=== PATIENT | male | born 1945 | race Caucasian/White ===

== ENCOUNTER 2019-10-09 12:15 | Outpatient (CLI) | payer OTHER, SELFPAY ==
[2019-10-09 12:42] LABS: Basophils Percent Auto 0.6 % (0.2-1.2); Eosinophils Absolute Auto 0.2 K/mm3 (0-0.3); Eosinophils Percent Auto 3.1 % (0-4.4); Hematocrit 27.7 % (42.0-52.0); Hemoglobin 8.9 g/dL (14.0-18.0); Immature Granulocyte Absolute 0.01 K/mm3 (0.00-0.031); Immature Granulocyte Percent A 0.1 % (0-0.5); Lymphocytes Absolute Auto 1.72 K/mm3 (0.9-3.2); Lymphocytes Percent Auto 25.6 % (18.3-44.2); Mean Corpuscular HGB Conc 32.1 g/dl (32-36); Mean Corpuscular Volume 96.5 fl (80-100); Mean Platelet Volume 9.8 fl (7.4-10.4); Monocytes Absolute Auto 0.6 K/mm3 (0.1-0.6); Monocytes Percent Auto 8.8 % (2.6-8.5); Neutrophils Absolute Auto 4.2 K/mm3 (1.3-6.7); Neutrophils Percent Auto 61.8 % (45.5-73.1); Platelet Count Result 220 k/mm3 (150-375); Red Blood Count 2.87 M/mm3 (4.6-6.20); Red Cell Distribution Width 13.5 % (11.5-14.5); White Blood Count 6.7 K/mm3 (4.5-10.0)
[2019-10-09 12:50] LABS: Albumin Level 4.2 g/dL (3.5-5.1); Anion Gap 13.5 mmol/L (7-16); Blood Urea Nitrogen 39 mg/dL (9-20); Calcium 9.3 mg/dL (8.4-10.2); Carbon Dioxide 29 mmol/L (22-30); Chloride 102 mmol/L (98-107); Estimated Glomerular Filt Rate 13; Glucose 147 mg/dL (75-110); Phosphorus 3.1 mg/dL (2.5-4.5); Potassium 3.5 mmol/L (3.4-5.0); Sodium 141 mmol/L (137-145)
[2019-10-09 13:23] LABS: Iron 61 ug/dL (49-181)
[2019-10-09 13:32] LABS: Percent Iron Saturation 18 % (20-50)
== END 2019-10-09 12:16 | disposition home or self-care (01) ==
PROVIDERS: PCP Internal Medicine
DX: N17.9 Acute kidney failure, unspecified (principal); N18.9 Chronic kidney disease, unspecified; D63.1 Anemia in chronic kidney disease
CPT/HCPCS: 36415; 80069; 82728; 83540; 83550; 85025

== ENCOUNTER 2019-10-10 11:51 | Outpatient (CLI) | payer OTHER, SELFPAY ==
[2019-10-10 14:52] LABS: Creatinine Urine 66.2 mg/dL
[2019-10-10 14:57] LABS: MALB Creatinine Ratio 137.8 mg/g (0-30); Microalbumin Urine Random 91.2 mg/L (0-16.7)
== END 2019-10-10 11:52 | disposition home or self-care (01) ==
PROVIDERS: PCP Internal Medicine
DX: N17.9 Acute kidney failure, unspecified (principal)
CPT/HCPCS: 82043

== ENCOUNTER 2019-10-19 10:02 | Observation (INO) | payer OTHER, SELFPAY ==
[2019-10-19] VITALS (7 sets, daily range): BP systolic 142–188; BP diastolic 72–83; PULSE 78–98; RESP 12–20; TEMP 36.7–37.2; O2SAT 20–99; BMI 31.1
--- NOTE | ~2019-10-19 | XR_ITS ---
EXAMINATION: XR chest 1V DATE: 10/19/2019 11:06 INDICATION: Weakness post fall TECHNIQUE: frontal view of the chest was obtained. COMPARISON: Chest radiograph dated 02/15/2018 FINDINGS: Small lung volumes with mild left basilar atelectasis. No pulmonary edema, pleural effusion or pneumo thorax. The cardiomediastinal silhouette is normal. Severe midthoracic spondylosis. IMPRESSION: 1. Small lung volumes with mild left basilar atelectasis. Reviewed, dictated and finalized at location A.
--- NOTE | ~2019-10-19 | CT_ITS ---
EXAMINATION: CT brain wo con DATE: 10/19/2019 10:59 INDICATION: Dizziness. Weakness. TECHNIQUE: Computed tomography (CT) of the head was performed without intravenous contrast. The mA wa s adjusted according to patient size. Iterative reconstruction technique was employed. The dose-lengt h product was 605.33 mGy-cm. COMPARISON: Head CT 02/15/2018, brain MRI 02/16/2018 FINDINGS: There are scattered areas of low attenuation in the cerebral white matter. There is no intr acranial hemorrhage, acute infarction, or abnormal intracranial mass lesion. The ventricles are khris l in size. The orbits are normal. There is mild mucosal thickening in the paranasal sinuses. The mast oid air cells are normal. IMPRESSION: 1. Worsened moderate nonspecific cerebral white matter disease, which likely represents chronic small vessel ischemic disease. Reviewed, dictated and finalized at location B. IMPRESSION: 1. Worsened moderate nonspecific cerebral white matter disease, which likely re presents chronic small vessel ischemic disease.
--- NOTE | ~2019-10-19 | XR_ITS ---
XR hip RT min 2V DATE: 10/19/2019 11:06 INDICATION: Right hip pain TECHNIQUE: AP and lateral views COMPARISON: None FINDINGS: Right bipolar hip prosthesis is normally seated in the right acetabular fossa. No fracture or dislocation is evident. The pubic symphysis and sacroiliac joints appear intact. There is a very prominent amount of fecal material in the rectosigmoid area consistent with fecal imp action. IMPRESSION: Right bipolar hip prosthesis Reviewed, dictated and finalized at location A.
--- NOTE | ~2019-10-19 | US_ITS ---
EXAMINATION: US renal BI DATE: 10/20/2019 13:41 INDICATION: Decreased kidney function. TECHNIQUE: Multiple ultrasound grayscale images of the kidneys were obtained. COMPARISON: Abdomen MRI 09/25/2005 FINDINGS: The right kidney measures 11.2 x 6.8 x 5.7 cm. The left kidney measures 11.6 x 5.2 x 4.5 cm. The kidn eys demonstrate normal parenchymal echogenicity. There is a 4.6 cm cyst in right kidney. There is mil d right hydronephrosis. The bladder is normal. IMPRESSION: 1. Mild right hydronephrosis. Reviewed, dictated and finalized at location B.
--- NOTE | 2019-10-19 10:01 | ECG_ITS ---
Measurements Intervals [place] Rate: 93 P: 29 CT: 213 QRS: -19 QRSD: 108 T: 44 QT: 372 QTc: 464 Interpretive Statements SINUS RHYTHM WITH FIRST DEGREE AV BLOCK DELAYED PRECORDIAL R/S TRANSITION BASELINE WANDER- I, II, III, AVR, AVL, AVF, V2-V3 ABNORMAL ECG Electronically Signed On 10-19-2019 11:52:17 CDT by Kimo Puckett D.O.
[2019-10-19 10:16] LABS: Basophils Percent Auto 0.7 % (0.2-1.2); Eosinophils Absolute Auto 0.3 K/mm3 (0-0.3); Eosinophils Percent Auto 4.4 % (0-4.4); Hematocrit 27.5 % (42.0-52.0); Hemoglobin 8.9 g/dL (14.0-18.0); Immature Granulocyte Absolute 0.01 K/mm3 (0.00-0.031); Immature Granulocyte Percent A 0.2 % (0-0.5); Lymphocytes Absolute Auto 1.58 K/mm3 (0.9-3.2); Lymphocytes Percent Auto 26.5 % (18.3-44.2); Mean Corpuscular HGB Conc 32.4 g/dl (32-36); Mean Corpuscular Volume 95.8 fl (80-100); Mean Platelet Volume 9.6 fl (7.4-10.4); Monocytes Absolute Auto 0.6 K/mm3 (0.1-0.6); Monocytes Percent Auto 9.7 % (2.6-8.5); Neutrophils Absolute Auto 3.5 K/mm3 (1.3-6.7); Neutrophils Percent Auto 58.5 % (45.5-73.1); Platelet Count Result 210 k/mm3 (150-375); Red Blood Count 2.87 M/mm3 (4.6-6.20); Red Cell Distribution Width 13.2 % (11.5-14.5)
[2019-10-19 10:27] LABS: Alanine Aminotransferase 11 U/L (4-50); Alkaline Phosphatase 104 U/L (38-126); Anion Gap 11 mmol/L (8-16); Aspartate Amino Transferase 27 U/L (17-59); Bilirubin,Total 0.3 mg/dL (0.2-1.3); Blood Urea Nitrogen 33 mg/dL (9-20); Calcium 9.2 mg/dL (8.4-10.2); Carbon Dioxide 25 mmol/L (22-30); Chloride 102 mmol/L (98-107); Estimated CRCL calculation 17 ml/min; Estimated Glomerular Filt Rate 15; Glucose 212 mg/dL (75-110); Potassium 3.3 mmol/L (3.4-5.0); Sodium 138 mmol/L (137-145)
--- NOTE | 2019-10-19 10:33 | ED.WEAKNESS ---
HPI - Weakness General Chief complaint: Weakness Stated complaint: weakness Time Seen by Provider: 10/19/19 10:11 History of Present Illness HPI Narrative: Patient presents with his son from home for weakness and dizziness. He recently had a right hip surgery at [place]. After the surgery he had anemia which progressed to renal failure. He has not yet had dialysis. His unit aid is also at [place]. He continues to have anemia. He walks with a walker at home. He has not had any blood in his stools. He has difficulty initiating the stream with urine. His son said he has had recurrent dizziness for some time now. It is worse when he just stands up. And the patient's blood pressure has been elevated chronically. It usually runs 170/90. The son and daughter are his primary caregivers. MD Complaint: generalized weakness Onset (ago): week(s) Duration: constant Location: generalized Severity: moderate Relieving factors: none Exacerbating factors: exertion Context: recent surgery Associated symptoms: denies other symptoms Related Data Home Medications Medication Instructions Recorded Confirmed glimepiride 4 mg tablet 4 mg PO QAM 03/28/19 05/15/19 insulin glargine 100 unit/mL 100 unit SUB-Q DAILY 03/28/19 05/15/19 subcutaneous solution lamotrigine 100 mg tablet 100 mg PO BID 03/28/19 05/15/19 metformin 500 mg tablet 500 mg PO BID 03/28/19 05/15/19 midodrine 10 mg tablet 10 mg PO TID 03/28/19 05/15/19 quetiapine 100 mg tablet 100 mg PO DAILY tablet 03/28/19 05/15/19 Allergies Allergy/AdvReac Type Severity Reaction Status Date / Time Penicillins Allergy Unknown Verified 02/15/18 11:48 Review of Systems Review of Systems: Narrative: CONSTITUTIONAL: Denies fever, chills, or sweats. EYES: Denies visual changes, redness, or discharge. ENT: Denies rhinorrhea, congestion, sore throat, or otalgia. CARDIOVASCULAR: Denies chest pain, palpitations, or edema. RESPIRATORY: Denies cough or dyspnea. GASTROINTESTINAL: Denies abdominal pain, nausea, vomiting, or diarrhea. GENITOURINARY: Denies dysuria or hematuria. He has difficulty initiating stream. SKIN: Denies rash or itching. MUSCULOSKELETAL: Denies back pain, joint pain, or myalgia. NEUROLOGIC: Denies headache, numbness, but has generalized weakness. All systems reviewed & are unremarkable except as noted in HPI and below PMFSH Past Medical History Medical History (Updated 10/19/19 @ 14:51 by Cris Slade MD) Bipolar II disorder Cerebellar ataxia Chronic kidney disease, stage II (mild) Orthostatic hypotension Peripheral autonomic neuropathy Type 2 diabetes mellitus with diabetic neuropathy Vertigo, constant Surgical History Surgical History (Updated 10/19/19 @ 10:37 by Cris Slade MD) History of hip surgery Social History Social History Smoking status: Never smoker Second hand tobacco smoke exposure: No Alcohol intake: current Gender identity (if verbalized by the patient): Male Exam Narrative: Exam Narrative: GENERAL: Well-appearing, well-nourished, and in no acute distress. Overweight, very pale, fingernails with black dirt beneath them. HEAD: Normocephalic, atraumatic. EYES: PERRLA and EOMI. ENT: Nares clear, no rhinorrhea or epistaxis. Mucous membranes moist. NECK: Supple. CHEST: Clear to auscultation. No respiratory distress. HEART: Regular rate and rhythm. No murmur heard. Normal peripheral pulses. ABDOMEN: Soft, nontender, nondistended, normal active bowel sounds. EXTREMITIES: Normal range of motion. No edema. SKIN: Warm, dry, no rash. NEURO: No focal deficits. Alert and oriented x3. PSYCH: Flat affect. Const: General: no acute distress Orientation/consciousness: patient oriented x3 Course Reevaluation(s) Reevaluation #1: Went in to give the patient and his son and update. The renal failure is not as bad as it has been in the past, the lactic acid is slightly positive. Gerard zimmerman
[2019-10-19 10:36] LABS: Immature Reticulocyte Fraction 7.3 % (3.0-15.9); Reticulocyte Hemoglobin Conten 35.1 pg (28.2-35.7); Reticulocyte Percent 1.03 % (0.7-4.3); Reticulocytes Absolute 0.03 B/L (32.2-175.7)
[2019-10-19 10:45] LABS: INR 1.1; Prothrombin Time 13.4 Seconds (11.1-14.7)
[2019-10-19 11:04] LABS: Lactic Acid 2.4 mmol/L (0.7-2.1)
[2019-10-19 11:11] LABS: Ethanol < 10 mg/dL (<10)
[2019-10-19 11:27] LABS: NT Pro B Type Natriuretic Pept 376 PG/ML (5-100)
[2019-10-19 12:16] LABS: Add Urine Microscopic? YES; Appearance Urine Clear (Clear); Bilirubin Urine Negative (Negative); Blood Urine 1+ (Negative); Color Urine Straw (Yellow); Glucose Urine UA 2+ mg/dL (Negative); Ketones Urine Negative (Negative); Leukocyte Esterase Ur Negative LEU/UL (Negative); Nitrate Urine Negative (Negative); Protein Urine 1+ mg/dL (Negative); Specific Grav Ur 1.012 (1.001-1.035); Urobilinogen Urine Negative mg/dL (<2.0); WBC Urine 0-3 /hpf
[2019-10-19] MEDS: SODIUM CHLORIDE 0.9% IV 1,000 ML 500 ML IV CONT (12:59)
--- NOTE | 2019-10-19 17:31 | ADMGEN ---
This patient, Juanjo Urbano, was admitted to 3 [facility] Surg Room 320-01. Patient/family oriented to hospital policies and general routines including ID bracelet, bed and alarms, visiting hours, pain management, procedures, bathroom and other care routines, personal items, smoking policy, room service/diet, and visiting hours. Valuables list has been completed. Information on how to activate the Rapid Response Team has been discussed. Patient/Family are encouraged to report perceived risks to care and to ask questions if they do not understand what they are told or what they should do.
--- NOTE | 2019-10-19 19:36 | PM.CNNEP ---
Assessment and Plan Assessment and plan (1) JOSELUIS (acute kidney injury): Code(s): N17.9 - Acute kidney failure, unspecified Status: Acute (2) CKD (chronic kidney disease): Code(s): N18.9 - Chronic kidney disease, unspecified Status: Acute (3) Weakness: Code(s): R53.1 - Weakness Status: Acute (4) Acidosis, lactic: Code(s): E87.2 - Acidosis Status: Acute (5) Hypertension: Code(s): I10 - Essential (primary) hypertension Status: Acute (6) Diabetes: Code(s): E11.9 - Type 2 diabetes mellitus without complications Status: Acute (7) Anemia: Code(s): D64.9 - Anemia, unspecified Status: Acute Assessment and Plan: . Additional Plan Juanjo has renal insufficiency thought to be secondary to resolving acute tubular necrosis from his previous hospitalization at [facility]. Records indicate that the presumed etiology of his acute kidney injury was thought to be due to blood loss anemia and subsequent hypotension leading to renal hypoperfusion/ATN. His kidney function is improving albeit very slowly but given the severity of the insult that he sustained during this previous hospitalization, it is very possible that he may have a new baseline creatinine. He continues to make fairly good urine output and has no critical electrolyte abnormalities so I do not think any further intervention needs to be done at this time other than close observation of his renal function to see where his kidney function stabilizes two. For completeness sake, I will check urine electrolytes, urine assess the fills and a repeat renal ultrasound to ensure we are not missing any other issues or factors playing a role with regard to his renal dysfunction and follow the trend of serial labs and urine output. If his kidney function fails to improve to his previous baseline, then further testing / intervention can be done but as already mentioned, he had a fairly extensive workup by the counter checker at [facility] when his initial acute insult occurred so I do not want to repeat the same evaluation it was already done. I will continue follow patient with you while he remains hospitalized and make further recommendations during his hospital course. Thank you for allowing me to participate in care this patient. History of Present Illness Reason for Consult Consult date: 10/19/19 Reason for consult: acute renal failure and chronic renal failure Chief Complaint Chief complaint: weakness,latic acidosis,renal failure History of Present Illness Narrative: The patient is a 74-year-old male a past medical history as outlined below who present to [facility] Emergency room with complaints of generalized weakness. The patient was recently hospitalized at [facility] after he sustained a fall and subsequent hip fracture. His hospital course was somewhat complicated by severe anemia along with acute kidney injury/acute renal failure. His kidney function eventually started to improve by the time of discharge and he did not require any intervention in the form of dialysis or renal replacement therapy. He continues to make fairly good urine output with relative stability in his electrolytes. More recently, however, his family has noticed that he has become more fatigued and weak associated with issues and problems of dizziness that subsequently led to his presentation to the emergency room. Workup and evaluation in the emergency room demonstrated the patient to be hemodynamically stable (with actually somewhat hypertensive) with the a for mention complaints of weakness. Routine blood test demonstrated labs consistent with his resolving renal dysfunction, mild hypokalemia, mild anemia, a lactic acid that was somewhat elevated. As his family felt that they could not care for him and his they were concerned that he may need placement, he was admitted t
[2019-10-19 21:37] LABS: Creatinine Urine 47.7 mg/dL; Total Protein Urine Random 55 mg/dL
[2019-10-19 21:40] LABS: Sodium Urine Random 110 meq/L
--- NOTE | 2019-10-19 22:50 | PM.IMHP ---
H&P: HPI History of Present Illness Date/Time: 10/19/19 22:50 Chief complaint: weakness,latic acidosis,renal failure Narrative: Juanjo Urbano is a 74 year old male who stated that he recently had a hip repair in that he went into renal failure after his hip surgery. Patient stated that he was at morning she was Hospital. He has had gradually his BUN and creatinine have gotten somewhat better. He stated his creatinine was some III. The patient states that he has a history of dizziness which is been long acting he also has orthostatic hypotension that is chronic. The patient lives with his but they have a day a caregiver and the son has become increasingly more so concerned about the patient being home alone with the . The patient tells me that his is not in the best health either in that she has fractured both her hips in the past. Patient stated today that his son was there and was trying to get him up any had a gait belt on but his legs gave out any slid to the floor. He stated that he did not hit his head at all. Patient's lactic was slightly elevated 2.4 after a L fluid is 1.0. The ED provider was going to send the patient home however the son stated that he could not take the father home and he was concerned for his health. He is concerned that the patient may fall again. Patient's creatinine was 4.3 and after fluids he was 3.9. His GFR was listed as 13 and then 15. Cleaning clearance was not reportable in that it was 17. Random glucose initially was 227 than 147 and then 212. Review of Systems Review of Systems: All systems reviewed & are unremarkable except as noted in HPI and below Constitutional: Constitutional: Reports as per HPI and Reports no additional constitutional complaints Eyes: Eyes: Reports as per HPI and Reports no additional eye complaints ENT: Reports system reviewed and no additional complaints, except as documented and Reports Normal hearing present Cardiovascular: Cardiovascular: Reports no additional cardiovascular complaints Respiratory: Respiratory: Reports no additional respiratory complaints and Reports no additional respiratory complaints Gastrointestinal: Gastrointestinal: Reports as per HPI and Reports no additional gastrointestinal complaints Musculoskeletal: Musculoskeletal: Reports no additional musculoskeletal complaints Integumentary/Breasts: Skin/Breast: Reports system reviewed and no additional complaints, except as docu and Reports as per HPI Neurologic: Reports system reviewed and no additional complaints, except as documented, Reports as per HPI and Reports Normal hearing present Psychiatric: Psychiatric: Reports no additional psychiatric complaints and Reports as per HPI Endocrine: Endocrine: Reports no additional endocrine complaints Hematologic/Lymphatic: Hematologic/Lymphatic: Reports no additional hematologic/lymphatic complaints Allergic/Immunologic: Allergic/Immunologic: Reports no additional allergic/immunologic complaints [facility] Past Medical History Medical History (Updated 10/19/19 @ 23:04 by Marya Amin NP) Bipolar II disorder Cerebellar ataxia Chronic kidney disease, stage II (mild) CRF (chronic renal failure) stage 4 Orthostatic hypotension Other hyperlipidemia Peripheral autonomic neuropathy Type 2 diabetes mellitus with diabetic neuropathy Vertigo, constant Surgical History Surgical History (Updated 10/19/19 @ 23:07 by Marya Amin NP) History of hip surgery right hip History of tonsillectomy Family History Family History Father Malignant neoplasm of prostate Cancer of kidney Mother Family history of diabetes mellitus in first degree relative Social History Social History (Updated 10/19/19 @ 23:02 by Marya Amin NP) Social History: the patient lives with his . He has 3 children and his son is the poa and the patient stated that he just redid the livin
[2019-10-19] MEDS: ROSUVASTATIN 10 MG TABLET 20 MG PO (23:46)
[2019-10-20 05:59] LABS: Basophils Absolute Auto 0.1 K/mm3 (0.0-0.1); Basophils Percent Auto 0.7 % (0.2-1.2); Eosinophils Absolute Auto 0.3 K/mm3 (0-0.3); Eosinophils Percent Auto 3.8 % (0-4.4); Hematocrit 29.5 % (42.0-52.0); Hemoglobin 9.6 g/dL (14.0-18.0); Immature Granulocyte Absolute 0.02 K/mm3 (0.00-0.031); Immature Granulocyte Percent A 0.3 % (0-0.5); Lymphocytes Absolute Auto 1.75 K/mm3 (0.9-3.2); Lymphocytes Percent Auto 24.3 % (18.3-44.2); Mean Corpuscular HGB Conc 32.5 g/dl (32-36); Mean Corpuscular Hemoglobin 30.8 pg (26-34); Mean Corpuscular Volume 94.6 fl (80-100); Mean Platelet Volume 10.1 fl (7.4-10.4); Monocytes Absolute Auto 0.7 K/mm3 (0.1-0.6); Neutrophils Absolute Auto 4.5 K/mm3 (1.3-6.7); Neutrophils Percent Auto 61.9 % (45.5-73.1); Platelet Count Result 219 k/mm3 (150-375); Red Blood Count 3.12 M/mm3 (4.6-6.20); Red Cell Distribution Width 13.1 % (11.5-14.5); White Blood Count 7.2 K/mm3 (4.5-10.0)
[2019-10-20 06:00] VITALS: BP 162/79; PULSE 82; RESP 18; TEMP 36.5; O2SAT 97
[2019-10-20 06:11] LABS: Alanine Aminotransferase 10 U/L (4-50); Albumin Level 4.1 g/dL (3.5-5.1); Alkaline Phosphatase 109 U/L (38-126); Anion Gap 11 mmol/L (8-16); Aspartate Amino Transferase 29 U/L (17-59); Bilirubin,Total 0.4 mg/dL (0.2-1.3); Blood Urea Nitrogen 28 mg/dL (9-20); Carbon Dioxide 25 mmol/L (22-30); Chloride 104 mmol/L (98-107); Estimated CRCL calculation 20 ml/min; Estimated Glomerular Filt Rate 17; Glucose 134 mg/dL (75-110); Magnesium 1.9 mg/dL (1.6-2.3); Potassium 3.2 mmol/L (3.4-5.0); Sodium 140 mmol/L (137-145)
[2019-10-20 06:12] LABS: Lactic Acid 1.1 mmol/L (0.7-2.1)
[2019-10-20 07:06] LABS: Hemoglobin A1C 5.3 % (<5.7)
[2019-10-20 07:55] VITALS: BP 147/77; PULSE 98; RESP 16; O2SAT 98
[2019-10-20 08:00] VITALS: BP 109/54; BP 139/70; BP 171/83
[2019-10-20] MEDS: CALCIUM CARBONATE (TUMS) 500 MG (200 MG ELEMENTAL) PO ×2 (09:18→16:45)
[2019-10-20] MEDS: POTASSIUM CHLORIDE 20 MEQ TABLET PO (09:20)
[2019-10-20] MEDS: ESCITALOPRAM OXALATE 10 MG TABLET PO (09:21)
[2019-10-20] MEDS: lamoTRIgine 100 MG TABLET 200 MG PO ×2 (09:22→16:46)
[2019-10-20] MEDS: INSULIN GLARGINE (*BKC) 100 UNITS/ML 14 UNITS SUB-Q (09:23)
[2019-10-20] MEDS: CHOLECALCIFEROL 1,000 UNITS TABLET 4000 UNITS PO (09:30)
[2019-10-20 09:44] LABS: Glucose Point of Care 142 (65-105)
[2019-10-20 12:13] LABS: Glucose Point of Care 192 (65-105)
--- NOTE | 2019-10-20 13:13 | PM.IMPN ---
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 He feels weak and both he and his son were concerned for him caring for himself at home. He does live with his son and [id number] And he has a care provider who comes in a few days per week. He has had several falls in the past. Continue PT and OT. Monitor orthostatic blood pressures. Care coordination has been consulted for possible placement (2) CRF (chronic renal failure): Code(s): N18.9 - Chronic kidney disease, unspecified Status: Chronic Assessment and Plan: history indicates that he has CKD stage 2. He was recently hospitalized in [place] and had renal insufficiency at that time thought to be secondary to ATN or renal hypoperfusion as a result of blood loss anemia and hypotension. His kidney function has improved from that time, although he still has somewhat significant kidney injury. There may additionally be a component of dehydration as he has had several episodes of diarrhea which are beginning to improve. Nephrology has been consulted and recommendations are appreciated. Continue to closely monitor renal function. Avoid nephrotoxic agents and renally dose medications (3) Anemia: Qualifiers: Anemia type: unspecified type Qualified Code(s): D64.9 - Anemia, unspecified Code(s): D64.9 - Anemia, unspecified Status: Chronic Assessment and Plan: H&H is improved today from previous labs. this appears to be a somewhat recent development as previous labs from 2018 food she evidence of anemia. He was hospitalized in [place] recently and had blood loss anemia at that time. Monitor H&H closely and transfuse as needed (4) Obstructive sleep apnea: Code(s): G47.33 - Obstructive sleep apnea (adult) (pediatric) Status: Acute Assessment and Plan: Chronic. He has not been currently using his CPAP. May benefit from repeat sleep study as an outpatient to determine if CPAP therapy is still needed. (5) Type 2 diabetes mellitus with diabetic nephropathy, without long-term current use of insulin: Code(s): E11.21 - Type 2 diabetes mellitus with diabetic nephropathy Status: Acute Assessment and Plan: A1c is 5.3. Blood sugars have been fairly well controlled. Continue Accu-Cheks ACHS, SSI, and hypoglycemia protocol resume home Lantus 14 units. (6) Bipolar II disorder: Code(s): F31.81 - Bipolar II disorder Status: Chronic Assessment and Plan: Mood is stable at this time. Continue Lexapro , Seroquel, and Lamictal (7) Hypokalemia: Code(s): E87.6 - Hypokalemia Status: Acute Assessment and Plan: Potassium mildly low today at 3.2, likely secondary to recent episodes of diarrhea which have improved. Replace with low-dose potassium and monitor potassium levels closely. Subjective Date/time seen: 10/20/19 13:13 Interval history: Date of service: 10/20/2019 He complains of dizziness. At this time, he does not feel dizzy but has been feeling so lately. He is unable to tell me if he feels that he is spinning or if the room is spinning, etc. He also complains of some lightheadedness. He feels generally weak and has poor energy. His appetite has been good. He denies headaches. He has not had visual changes, speech changes, or dysphagia. He denies shortness of breath, cough, chest pain, abdominal pain, nausea, vomiting, fever, or chills. He denies any numbness or tingling in his extremities. He has been participating with PT and OT and feels that he is handling this well. He denies any urinary symptoms. He has been sleeping well. Review of Systems Review of Systems: Narrative: A 12 point review of systems was reviewed with pertinent posi
[2019-10-20 14:00] VITALS: BP 140/74; PULSE 100; RESP 14; TEMP 36.9; O2SAT 97
[2019-10-20 17:18] LABS: Glucose Point of Care 164 (65-105)
[2019-10-20 20:23] LABS: Glucose Point of Care 208 (65-105)
[2019-10-20] MEDS: QUEtiapine FUMARATE 100 MG TABLET 200 MG PO (20:40)
[2019-10-20] MEDS: ROSUVASTATIN 10 MG TABLET 20 MG PO (20:41)
[2019-10-20 22:00] VITALS: BP 145/74; PULSE 89; RESP 16; TEMP 37.1; O2SAT 97
--- NOTE | 2019-10-20 22:50 | PM.PNNEP ---
Progress Note: A&P Assessment and Plan (1) JOSELUIS (acute kidney injury): Code(s): N17.9 - Acute kidney failure, unspecified Status: Acute Assessment and Plan: He had ATN at [facility]. his creainine seems to still be coming down from that. (2) CKD (chronic kidney disease): Code(s): N18.9 - Chronic kidney disease, unspecified Status: Acute Assessment and Plan: his creatinine was normal a few years ago but 2.4 on admit to [facility]. It is unclear what [facility] baseline creatinine is. (3) Weakness: Code(s): R53.1 - Weakness Status: Acute Assessment and Plan: working with PT/OT (4) Acidosis, lactic: Code(s): E87.2 - Acidosis Status: Acute (5) Hypertension: Code(s): I10 - Essential (primary) hypertension Status: Acute Assessment and Plan: BP under good contro. (6) Diabetes: Code(s): E11.9 - Type 2 diabetes mellitus without complications Status: Acute Assessment and Plan: sugars being watched and SSI (7) Anemia: Code(s): D64.9 - Anemia, unspecified Status: Acute Assessment and Plan: .a bit anemic. watch this.. Subjective Date/time seen: 10/20/19 22:50 Interval history: pt is alert. feels okay. no cp or sob. bp has been good. eating okay Exam Narrative: Exam Narrative: GENERAL APPEARANCE: well developed well nourished male in no acute distress CARDIOVASCULAR: RRR, normal S1 and S2, no rub detected RESPIRATORY: clear to auscultation bilaterally ABDOMEN: soft, nontender, nondistended, positive bowel sounds present SKIN no rash EXT mp edema Objective Data Vital Signs Vital Signs: Vital Signs - 24 hr 10/20/19 06:00 10/20/19 07:55 10/20/19 08:00 Temperature 36.5 C Pulse Rate 82 98 Respiratory Rate 18 16 Blood Pressure 162/79 H 147/77 H 171/83 H Pulse Oximetry 97 98 10/20/19 14:00 10/20/19 22:00 Temperature 36.9 C 37.1 C Pulse Rate 100 89 Respiratory Rate 14 16 Blood Pressure 140/74 145/74 H Pulse Oximetry 97 97 Intake/Output Intake/Output: Intake & Output 10/17/19 10/18/19 10/19/19 10/20/19 23:59 23:59 23:59 23:59 Intake Total 1240 1950 Output Total 1780 Balance 1240 170 Meds/Results Medications: Active Medications Generic Name Dose Route Start Last Admin Trade Name Freq PRN Reason Stop Dose Admin Calcium Carbonate 500 mg 10/20/19 09:00 10/20/19 16:45 Tums PO 500 mg BID CAESAR Administration Dextrose 12.5 gm 10/19/19 22:56 Dextrose 50% Syringe IV PUSH PRN PRN Hypoglycemia Protocol Escitalopram Oxalate 10 mg 10/20/19 09:00 10/20/19 09:21 Lexapro PO 10 mg DAILY CAESAR Administration Glucagon 1 mg 10/19/19 22:56 Glucagon For Inj IM PRN PRN Hypoglycemia Protocol Glucose 15 gm 10/19/19 22:56 Glutose 15 PO PRN PRN Hypoglycemia Protocol Dextrose 1,000 mls @ 100 mls/hr 10/19/19 22:56 Dextrose 5% 1,000 Ml IVPB PRN PRN Hypoglycemia Protocol Insulin Aspart 2 - 5 units 10/20/19 08:00 10/20/19 17:36 Novolog SUB-Q Not Given TIDWM CAESAR Protocol Insulin Glargine 14 units 10/20/19 09:00 10/20/19 09:23 Lantus SUB-Q 14 units DAILY CAESAR Administration Lamotrigine 200 mg 10/20/19 09:00 10/20/19 16:46 Lamictal PO 200 mg BID CAESAR Administration Quetiapine Fumarate 200 mg 10/20/19 00:02 10/20/19 20:40 Seroquel PO 200 mg HS CAESAR Administration Rosuvastatin Calcium 20 mg 10/19/19 23:10 10/20/19 20:41 Crestor PO 20 mg HS CAESAR Administration Sodium Bicarbonate 650 mg 10/19/19 22:48 Sodium Bicarbonate Tab PO TID PRN stomach upset Vitamin D 4,000 units 10/20/19 09:00 10/20/19 09:30 Vitamin D PO 4,000 units DAILY CAESAR Administration Radiology Results: ITS Impressions Head CT 10/19/19 11:00 IMPRESSION: 1. Worsened moderate nonspecific cerebral white matter disease, wh
[2019-10-21] VITALS (7 sets, daily range): BP systolic 83–160; BP diastolic 43–80; PULSE 97–110; RESP 16; TEMP 36.7–37.1; O2SAT 94–97
[2019-10-21 07:04] LABS: Basophils Percent Auto 0.2 % (0.2-1.2); Eosinophils Absolute Auto 0.2 K/mm3 (0-0.3); Eosinophils Percent Auto 2.6 % (0-4.4); Hematocrit 28.4 % (42.0-52.0); Hemoglobin 9.3 g/dL (14.0-18.0); Immature Granulocyte Absolute 0.03 K/mm3 (0.00-0.031); Immature Granulocyte Percent A 0.3 % (0-0.5); Mean Corpuscular HGB Conc 32.7 g/dl (32-36); Mean Corpuscular Hemoglobin 30.4 pg (26-34); Mean Corpuscular Volume 92.8 fl (80-100); Monocytes Absolute Auto 0.8 K/mm3 (0.1-0.6); Monocytes Percent Auto 8.9 % (2.6-8.5); Neutrophils Absolute Auto 5.9 K/mm3 (1.3-6.7); Platelet Count Result 219 k/mm3 (150-375); Red Blood Count 3.06 M/mm3 (4.6-6.20); Red Cell Distribution Width 12.7 % (11.5-14.5); White Blood Count 9.2 K/mm3 (4.5-10.0)
[2019-10-21 07:30] LABS: Alanine Aminotransferase 11 U/L (4-50); Albumin Level 4.1 g/dL (3.5-5.1); Alkaline Phosphatase 112 U/L (38-126); Anion Gap 11 mmol/L (8-16); Aspartate Amino Transferase 28 U/L (17-59); Bilirubin,Total 0.4 mg/dL (0.2-1.3); Blood Urea Nitrogen 27 mg/dL (9-20); Calcium 9.3 mg/dL (8.4-10.2); Carbon Dioxide 27 mmol/L (22-30); Chloride 101 mmol/L (98-107); Estimated CRCL calculation 21 ml/min; Estimated Glomerular Filt Rate 18; Glucose 155 mg/dL (75-110); Magnesium 1.9 mg/dL (1.6-2.3); Sodium 139 mmol/L (137-145)
[2019-10-21] MEDS: ESCITALOPRAM OXALATE 10 MG TABLET PO (08:14)
[2019-10-21] MEDS: lamoTRIgine 100 MG TABLET 200 MG PO ×2 (08:15→16:35)
[2019-10-21] MEDS: CALCIUM CARBONATE (TUMS) 500 MG (200 MG ELEMENTAL) PO ×2 (08:16→16:35)
[2019-10-21] MEDS: CHOLECALCIFEROL 1,000 UNITS TABLET 4000 UNITS PO (08:19)
[2019-10-21 08:35] LABS: Glucose Point of Care 162 (65-105)
[2019-10-21] MEDS: INSULIN GLARGINE (*BKC) 100 UNITS/ML 14 UNITS SUB-Q (08:48)
[2019-10-21 08:54] LABS: Potassium 3.3 mmol/L (3.4-5.0)
[2019-10-21] MEDS: SODIUM CHLORIDE 0.9% IV 500 ML IV CONT (10:40)
--- NOTE | 2019-10-21 12:52 | PM.PNNEP ---
Progress Note: A&P Assessment and Plan (1) JOSELUIS (acute kidney injury): Code(s): N17.9 - Acute kidney failure, unspecified Status: Acute Assessment and Plan: He had ATN at [facility]. his creainine seems to still be coming down from that. Every day is a little bit better. Okay to follow up as an outpatient if patient is ready for discharge in other respects (2) CKD (chronic kidney disease): Code(s): N18.9 - Chronic kidney disease, unspecified Status: Acute Assessment and Plan: his creatinine was normal a few years ago but 2.4 on admit to [place]. It is unclear what [facility] baseline creatinine is. (3) Weakness: Code(s): R53.1 - Weakness Status: Acute Assessment and Plan: working with PT/OT (4) Acidosis, lactic: Code(s): E87.2 - Acidosis Status: Acute Assessment and Plan: resolved (5) Hypertension: Code(s): I10 - Essential (primary) hypertension Status: Acute Assessment and Plan: BP under good control (6) Diabetes: Code(s): E11.9 - Type 2 diabetes mellitus without complications Status: Acute Assessment and Plan: sugars being watched and SSI (7) Anemia: Code(s): D64.9 - Anemia, unspecified Status: Acute Assessment and Plan: hemoglobin stable in the low 9s. Additional Plan Subjective Date/time seen: 10/21/19 12:52 Interval history: pt is alert. feels okay. no cp or sob. bp has been good. No complaints. Review of Systems Cardiovascular: Cardiovascular: Reports no additional cardiovascular complaints Respiratory: Respiratory: Reports no additional respiratory complaints Gastrointestinal: Gastrointestinal: Reports no additional gastrointestinal complaints Genitourinary: Genitourinary: Reports no additional male genitourinary complaints Exam Narrative: Exam Narrative: GENERAL APPEARANCE: well developed well nourished male in no acute distress CARDIOVASCULAR: RRR, normal S1 and S2, no rub detected RESPIRATORY: clear to auscultation bilaterally ABDOMEN: soft, nontender, nondistended, positive bowel sounds present SKIN no rash EXT no edema Objective Data Vital Signs Vital Signs: Vital Signs - 24 hr 10/20/19 14:00 10/20/19 22:00 10/21/19 05:50 Temperature 36.9 C 37.1 C 36.7 C Pulse Rate 100 89 97 Respiratory Rate 14 16 16 Blood Pressure 140/74 145/74 H 144/78 H Pulse Oximetry 97 97 94 10/21/19 06:00 10/21/19 06:45 Temperature Pulse Rate 107 H 110 H Respiratory Rate Blood Pressure 107/55 L 83/47 L Pulse Oximetry Intake/Output Intake/Output: Intake & Output 10/18/19 10/19/19 10/20/19 10/21/19 23:59 23:59 23:59 23:59 Intake Total 1240 1950 740 Output Total 1780 700 Balance 1240 170 40 Meds/Results Medications: Active Medications Generic Name Dose Route Start Last Admin Trade Name Freq PRN Reason Stop Dose Admin Calcium Carbonate 500 mg 10/20/19 09:00 10/21/19 08:16 Tums PO 500 mg BID CAESAR Administration Dextrose 12.5 gm 10/19/19 22:56 Dextrose 50% Syringe IV PUSH PRN PRN Hypoglycemia Protocol Escitalopram Oxalate 10 mg 10/20/19 09:00 10/21/19 08:14 Lexapro PO 10 mg DAILY CAESAR Administration Glucagon 1 mg 10/19/19 22:56 Glucagon For Inj IM PRN PRN Hypoglycemia Protocol Glucose 15 gm 10/19/19 22:56 Glutose 15 PO PRN PRN Hypoglycemia Protocol Dextrose 1,000 mls @ 100 mls/hr 10/19/19 22:56 Dextrose 5% 1,000 Ml IVPB PRN PRN Hypoglycemia Protocol Insulin Aspart 2 - 5 units 10/20/19 08:00 10/21/19 12:20 Novolog SUB-Q Not Given TIDWM [facility] Protocol Insulin Glargine 14 units 10/20/19 09:00 10/21/19 08:48 Lantus SUB-Q 14 units DAILY CAESAR Administration Lamotrigine 200 mg 10/20/19 09:00 10/21/19 08:15 Lamictal PO 200 mg BID CAESAR Administration Quetiapine Fumarate 200 mg
[2019-10-21 12:56] LABS: Glucose Point of Care 182 (65-105)
--- NOTE | 2019-10-21 16:29 | PM.IMPN ---
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 He feels weak and both he and his son were concerned for him caring for himself at home. He does live with his son and [id number] and he has a care provider who comes in a few days per week. He has had several falls in the past. Continue PT and OT. Monitor orthostatic blood pressures. Care coordination has been consulted for possible placement. Yesterday (10/19) CC spoke with son and decided on home health services. However, patient's son is no longer satisfied with discharge arrangements and does not feel that Mr. Urbano can be cared for at home. (2) Orthostatic hypotension: Code(s): I95.1 - Orthostatic hypotension Status: Acute Assessment and Plan: Patient was orthostatic this morning. He had a significant drop of 60 points when transitioning from supine to standing. HR increased by 13 beats per minute. He felt fine during this episode and was asymptomatic. He was given IV fluid bolus and Yuri hose were placed. Repeat orthostatic blood pressures did not reveal him to be orthostatic. Upon further review, this appears to be a chronic issue and is likely due to autonomic dysfunction. Continue use of Yuri hose as he had improvement. The patient son states that he is not able to apply the Yuri hose to the patient's leg at home and is unsure who will assist with this. Monitor orthostatics each shift I educated him on precautions including rising slowly from a supine or seated position. (3) CRF (chronic renal failure): Qualifiers: Chronic kidney disease stage: unspecified stage Qualified Code(s): N18.9 - Chronic kidney disease, unspecified Code(s): N18.9 - Chronic kidney disease, unspecified Status: Chronic Assessment and Plan: History indicates that he has CKD stage 2. He was recently hospitalized in [place] and had renal insufficiency at that time thought to be secondary to ATN or renal hypoperfusion as a result of blood loss anemia and hypotension. His kidney function has improved from that time, although he still has somewhat significant kidney injury. There may additionally be a component of dehydration as he has had several episodes of diarrhea which have since resolved. Nephrology has been consulted and recommendations are appreciated. Continue to closely monitor renal function. Avoid nephrotoxic agents and renally dose medications He can establish with Dr. Frausto as an outpatient for further renal monitoring. (4) Anemia: Qualifiers: Anemia type: unspecified type Qualified Code(s): D64.9 - Anemia, unspecified Code(s): D64.9 - Anemia, unspecified Status: Chronic Assessment and Plan: H&H has remained stable. He was hospitalized in [place] recently and had blood loss anemia at that time. May be secondary to chronic kidney disease. Monitor H&H closely and transfuse as needed (5) Obstructive sleep apnea: Code(s): G47.33 - Obstructive sleep apnea (adult) (pediatric) Status: Acute Assessment and Plan: Chronic. He has not been currently using his CPAP. May benefit from repeat sleep study as an outpatient to determine if CPAP therapy is still needed. (6) Type 2 diabetes mellitus with diabetic nephropathy, without long-term current use of insulin: Code(s): E11.21 - Type 2 diabetes mellitus with diabetic nephropathy Status: Acute Assessment and Plan: A1c is 5.3. Blood sugars have been fairly well controlled. Continue Accu-Cheks ACHS, SSI, and hypoglycemia protocol resume home Lantus 14 units. (7) Bipolar II disorder: Code(s): F31.81 - Bipolar II disorder Status: Chronic Assessment and Plan: Mood is stable at this time. Fidelina
[2019-10-21] MEDS: POTASSIUM CHLORIDE 20 MEQ TABLET PO (17:32)
[2019-10-21] MEDS: INSULIN ASPART (*BKC) 100 UNITS/ML SUB-Q (17:33)
[2019-10-21 17:50] LABS: Glucose Point of Care 230 (65-105)
--- NOTE | 2019-10-21 19:52 | PC.NURSE ---
RN at bedside to assist with orthostatic vitals
--- NOTE | 2019-10-21 19:53 | PC.NURSE ---
RN at bedside to assist with orthostatic vitals
--- NOTE | 2019-10-21 19:54 | PC.NURSE ---
RN was at bedside to assist with orthostatic vitals
[2019-10-21] MEDS: QUEtiapine FUMARATE 100 MG TABLET 200 MG PO (20:26)
[2019-10-21] MEDS: ROSUVASTATIN 10 MG TABLET 20 MG PO (20:26)
[2019-10-21 21:12] LABS: Glucose Point of Care 208 (65-105)
[2019-10-22 06:00] VITALS: BP 170/78; PULSE 92; RESP 18; TEMP 36.7; O2SAT 98
[2019-10-22 06:28] LABS: Hematocrit 28.8 % (42.0-52.0); Hemoglobin 9.7 g/dL (14.0-18.0); Mean Corpuscular HGB Conc 33.7 g/dl (32-36); Mean Corpuscular Hemoglobin 31.1 pg (26-34); Mean Corpuscular Volume 92.3 fl (80-100); Mean Platelet Volume 10.1 fl (7.4-10.4); Platelet Count Result 205 k/mm3 (150-375); Red Blood Count 3.12 M/mm3 (4.6-6.20); White Blood Count 8.6 K/mm3 (4.5-10.0)
[2019-10-22 06:44] LABS: Anion Gap 6 mmol/L (8-16); Blood Urea Nitrogen 24 mg/dL (9-20); Calcium 9.4 mg/dL (8.4-10.2); Carbon Dioxide 28 mmol/L (22-30); Chloride 103 mmol/L (98-107); Estimated CRCL calculation 22 ml/min; Estimated Glomerular Filt Rate 19; Glucose 153 mg/dL (75-110); Potassium 3.4 mmol/L (3.4-5.0); Sodium 137 mmol/L (137-145)
[2019-10-22 08:00] VITALS: PULSE 92; RESP 18; O2SAT 98
[2019-10-22 08:45] VITALS: BP 124/64; BP 141/65
[2019-10-22 08:46] VITALS: BP 132/87
--- NOTE | 2019-10-22 08:48 | PM.PNNEP ---
Progress Note: A&P Assessment and Plan (1) JOSLEUIS (acute kidney injury): Code(s): N17.9 - Acute kidney failure, unspecified Status: Acute Assessment and Plan: He had ATN at [facility]. his creainine seems to still be coming down from that. Every day is a little bit better. Okay to follow up as an outpatient if patient is ready for discharge in other respects (2) CKD (chronic kidney disease): Code(s): N18.9 - Chronic kidney disease, unspecified Status: Acute Assessment and Plan: his creatinine was normal a few years ago but 2.4 on admit to [place]. It is unclear what his baseline creatinine is. (3) Weakness: Code(s): R53.1 - Weakness Status: Acute Assessment and Plan: working with PT/OT (4) Acidosis, lactic: Code(s): E87.2 - Acidosis Status: Acute Assessment and Plan: resolved (5) Hypertension: Code(s): I10 - Essential (primary) hypertension Status: Acute Assessment and Plan: BP under good control His blood pressure does drop with standing. He looks euvolemic. He could have diabetic nephropathy but should check cortisol and also for multiple myeloma as a cause of orthostatic hypotension. Will start midodrine. (6) Diabetes: Code(s): E11.9 - Type 2 diabetes mellitus without complications Status: Acute Assessment and Plan: sugars being watched and SSI (7) Anemia: Code(s): D64.9 - Anemia, unspecified Status: Acute Assessment and Plan: hemoglobin up to 9.7. This is probably recovering as his kidneys recover (8) Hydronephrosis: Code(s): N13.30 - Unspecified hydronephrosis Status: Acute Assessment and Plan: he should see Urology. This can be as an outpatient or if he is going to be here while we could consult Urology while here. (9) Kidney cyst, acquired: Code(s): N28.1 - Cyst of kidney, acquired Status: Acute Assessment and Plan: He has a kidney cyst on his ultrasound. It sounds like he will be here for a while With the rehab, placement, orthostatic hypotension. Looking at the ultrasound report itself it seems that this is more than just mild hydro. So will get Urology involved. Additional Plan Subjective Date/time seen: 10/22/19 08:48 Interval history: pt is alert. feels okay. no cp or sob. bp has been good. eating and drinking well. Review of Systems Cardiovascular: Cardiovascular: Reports no additional cardiovascular complaints Respiratory: Respiratory: Reports no additional respiratory complaints Gastrointestinal: Gastrointestinal: Reports no additional gastrointestinal complaints Genitourinary: Genitourinary: Reports no additional male genitourinary complaints Exam Narrative: Exam Narrative: GENERAL APPEARANCE: well developed well nourished male in no acute distress CARDIOVASCULAR: RRR, normal S1 and S2, no rub detected RESPIRATORY: clear ABDOMEN: soft, nontender, nondistended, positive bowel sounds present SKIN no rash EXT no edema Or cyanosis Objective Data Vital Signs Vital Signs: Vital Signs - 24 hr 10/21/19 14:00 10/21/19 20:00 10/21/19 20:05 Temperature 36.7 C Pulse Rate 108 H Respiratory Rate 16 Blood Pressure 129/71 134/72 116/61 Pulse Oximetry 97 10/21/19 22:00 10/22/19 06:00 10/22/19 08:45 Temperature 37.1 C 36.7 C Pulse Rate 103 H 92 Respiratory Rate 16 18 Blood Pressure 160/80 H 170/78 H 124/64 Pulse Oximetry 96 98 10/22/19 08:46 Temperature Pulse Rate Respiratory Rate Blood Pressure 132/87 Pulse Oximetry Intake/Output Intake/Output: Intake & Output 10/19/19 10/20/19 10/21/19 10/22/19 23:59 23:59 23:59 23:59 Intake Total 1240 1950 2420 600 Output Total 1780 1750 1400 Balance 1240 170 670 -800 Meds/Results Medications: Active Medications Generic Name Dose Route Start Last Admin Trade Name Freq PRN Reason Stop Dose Admin
[2019-10-22] MEDS: CHOLECALCIFEROL 1,000 UNITS TABLET 4000 UNITS PO (09:05)
[2019-10-22] MEDS: CALCIUM CARBONATE (TUMS) 500 MG (200 MG ELEMENTAL) PO (09:06)
[2019-10-22] MEDS: ESCITALOPRAM OXALATE 10 MG TABLET PO (09:06)
[2019-10-22] MEDS: lamoTRIgine 100 MG TABLET 200 MG PO (09:06)
[2019-10-22] MEDS: INSULIN GLARGINE (*BKC) 100 UNITS/ML 14 UNITS SUB-Q (09:13)
[2019-10-22] MEDS: MIDODRINE HCL 2.5 MG TABLET PO (09:17)
[2019-10-22 11:38] LABS: Glucose Point of Care 255 (65-105)
--- NOTE | 2019-10-22 12:17 | PM.DS ---
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 He had ongoing weakness and his son was concerned for him caring for himself at home. He has had several falls in the past. He was evaluated by PT and OT. SNF placement was considered, however, patient and his son ultimately decided to pursue care with home health. (2) Orthostatic hypotension: Code(s): I95.1 - Orthostatic hypotension Status: Deleted Assessment and Plan: He was asymptomatic. He was rehydrated with IV fluid bolus and Yuri hose were placed. He was started on midodrine per nephrology recommendations. He was educated on fall precautions. . (3) CRF (chronic renal failure): Qualifiers: Chronic kidney disease stage: unspecified stage Qualified Code(s): N18.9 - Chronic kidney disease, unspecified Code(s): N18.9 - Chronic kidney disease, unspecified Status: Deleted Assessment and Plan: CKD stage II. He was recently hospitalized at outside facility and had renal insufficiency at that time thought to be secondary to ATN or renal hypoperfusion as a result of blood loss anemia and hypotension. His kidney function has improved from that time, although he still has residual kidney injury. of renal ultrasound performed 814 showed mild right hydronephrosis and 4.6 cm cyst in right kidney. Renal function continued to slowly improve. He was seen in consultation by nephrology and will follow up as an outpatient. Nephrology recommended outpatient urology appointment given his kidney cyst. (4) Anemia: Qualifiers: Anemia type: unspecified type Qualified Code(s): D64.9 - Anemia, unspecified Code(s): D64.9 - Anemia, unspecified Status: Resolved Assessment and Plan: H&H remained stable. Vitals were stable and he had no of active bleeding. Repeat CBC in 1 week. (5) Obstructive sleep apnea: Code(s): G47.33 - Obstructive sleep apnea (adult) (pediatric) Status: Acute Assessment and Plan: Chronic. He has not been currently using his CPAP. May benefit from repeat sleep study as an outpatient. (6) Type 2 diabetes mellitus with diabetic nephropathy, without long-term current use of insulin: Code(s): E11.21 - Type 2 diabetes mellitus with diabetic nephropathy Status: Acute Assessment and Plan: A1c is 5.3. Blood sugars were fairly well controlled. Continue home insulin regimen. Recommended monitoring blood sugars t.i.d. at home. (7) Bipolar II disorder: Code(s): F31.81 - Bipolar II disorder Status: Chronic Assessment and Plan: Mood is stable at this time. Continue Lexapro , Seroquel, and Lamictal (8) Hypokalemia: Code(s): E87.6 - Hypokalemia Status: Deleted Assessment and Plan: Potassium was mildly low and was replaced. Repeat BMP in 1 week. DS: Summary Hospital Course Reason for hospitalization: Weakness Hospital Course: Juanjo Urbano is a 74-year-old male with a history of cerebellar ataxia, insulin-dependent type 2 diabetes mellitus, CKD stage II, and bipolar disorder who presented to the emergency department on 10/19/2019 with complaints of weakness and dizziness. He was using his walker home and started to fall, however his son assisted him with a gait belt. The patient's son reported he did not feel comfortable taking the patient home at that time. At presentation, vitals were stable, H&H 8.9 and 27.5, BUN 33, creatinine 3.9, and head CT negative for acute findings. he was admitted to the hospitalist service for further evaluation and management and was seen in consultation by nephrology. Please see above for further details.
[2019-10-22] MEDS: INSULIN ASPART (*BKC) 100 UNITS/ML SUB-Q (12:23)
[2019-10-22 13:32] LABS: Folic Acid 8.5 ng/mL (2.76->20)
[2019-10-22 13:45] LABS: Iron 63 ug/dL (49-181)
[2019-10-22 13:54] LABS: Percent Iron Saturation 20 % (20-50)
[2019-10-22 14:00] VITALS: BP 153/77; PULSE 104; RESP 16; TEMP 36.4; O2SAT 98
[2019-10-24 21:43] LABS: Kappa\\Lambda Light Chains 3.14 (0.26-1.65); Lambda Light Chain 38.3 mg/L (5.7-26.3)
[2019-10-26 07:01] LABS: Albumin 3.3 g/dL (3.8-4.8); Alpha 1 Globulin 0.4 g/dL (0.2-0.3); Alpha 2 Globulin 0.9 g/dL (0.5-0.9); Beta 1 Globulin 0.5 g/dL (0.4-0.6); Gamma Globulin 1.3 g/dL (0.8-1.7); Protein, Total 6.9 g/dL (6.1-8.1)
== END 2019-10-22 15:30 | disposition home health service (06) ==
LOC: ANHED 15:19 → ANH3MEDSUR 16:34
PROVIDERS: Internal Medicine Nephrology; Nurse Practitioner; Physician Assistant; Admitting Provider Internal Medicine; Emergency Provider Emergency Medicine; PCP Internal Medicine; Visit Provider Family Medicine
DX: G11.9 Hereditary ataxia, unspecified (principal); I95.1 Orthostatic hypotension; E11.43 Type 2 diabetes mellitus with diabetic autonomic (poly)neuropathy; E11.21 Type 2 diabetes mellitus with diabetic nephropathy; N18.2 Chronic kidney disease, stage 2 (mild); N17.9 Acute kidney failure, unspecified; N13.30 Unspecified hydronephrosis; N28.1 Cyst of kidney, acquired; D64.9 Anemia, unspecified; G47.33 Obstructive sleep apnea (adult) (pediatric); F31.81 Bipolar II disorder; E87.6 Hypokalemia; Z79.899 Other long term (current) drug therapy; R53.1 Weakness; E87.2 Acidosis; Z79.4 Long term (current) use of insulin; E78.49 Other hyperlipidemia
CPT/HCPCS: 36415; 51701; 70450; 71045; 73502; 76775; 80048; 80053; 80307; 81001; 82533; 82570; 82607; 82728; 82746; 83036; 83540; 83550; 83605; 83735; 83880; 83883; 84155; 84156; 84165; 84300; 84443; 85025; 85027; 85046; 85610; 85999; 86334; 87015; 87045; 87046; 87177; 87209; 87269; 87272; 87427; 89055; 93005; 96360; 96361; 97110; 97116; 97161; 97165; 99291; A9270; G0378; J1815; J7030; J7040

== ENCOUNTER 2019-12-05 12:46 | Outpatient (CLI) | payer OTHER, SELFPAY ==
[2019-12-05 13:43] LABS: Albumin Level 4.4 g/dL (3.5-5.1); Anion Gap 10 mmol/L (8-16); Blood Urea Nitrogen 31 mg/dL (9-20); Calcium 9.8 mg/dL (8.4-10.2); Carbon Dioxide 30 mmol/L (22-30); Chloride 102 mmol/L (98-107); Estimated Glomerular Filt Rate 18; Glucose 161 mg/dL (75-110); Phosphorus 3.8 mg/dL (2.5-4.5); Potassium 4.7 mmol/L (3.4-5.0); Sodium 142 mmol/L (137-145)
[2019-12-05 14:24] LABS: Vitamin D 25 Hydroxy 48.3 ng/mL
== END 2019-12-05 12:47 | disposition home or self-care (01) ==
PROVIDERS: PCP Internal Medicine; Visit Provider Internal Medicine Nephrology
DX: N17.9 Acute kidney failure, unspecified (principal); E55.9 Vitamin D deficiency, unspecified
CPT/HCPCS: 36415; 80069; 82306

== ENCOUNTER 2019-12-06 12:07 | Observation (INO) | payer OTHER, SELFPAY ==
--- NOTE | ~2019-12-06 | XR_ITS ---
EXAMINATION: XR chest 1V portable DATE: 12/06/2019 12:53 INDICATION: Dizziness. TECHNIQUE: A single frontal view of the chest was obtained. COMPARISON: Chest single view 10/19/2019 FINDINGS: Lung volumes are small. There is mild atelectasis at the lung bases. No pleural effusion or pneumothorax. The heart size is normal. IMPRESSION: 1. Small lung volumes with mild atelectasis at the lung bases. Reviewed, dictated and finalized at location A.
--- NOTE | ~2019-12-06 | CT_ITS ---
EXAMINATION: CT brain wo con DATE: 12/06/2019 14:06 INDICATION: Sudden onset of dizziness TECHNIQUE: Computed tomography (CT) of the head was performed without intravenous contrast. The mA wa s adjusted according to patient size. Iterative reconstruction technique was employed. Exam dose: 60 5.33 mGy-cm total exam DLP. COMPARISON: 10/19/2019 CT brain FINDINGS: Bilateral carotid siphon internal carotid artery calcification and some vertebral basilar a rtery calcification is noted. There is nonspecific diminished attenuation of the subcortical and periventricular cerebral white mat ter, likely due to chronic small vessel ischemic changes. No intracranial mass lesion or hemorrhage or recent cerebrovascular accident is evident. No midline s hift or mass effect. No subdural or epidural hematoma is detected. The paranasal sinuses and mastoid air cells are essentially unremarkable other than occasional focal areas of minimal mucoperiosteal thickening. No fracture or bone destruction of the cranial vault. IMPRESSION: Cerebral atherosclerosis and chronic small vessel ischemic changes of the cerebral white matter; no acute intracranial finding Reviewed, dictated and finalized at Location [facility]. Reviewed, dictated and finalized at location B.
[2019-12-06 12:14] VITALS: BP 157/65; PULSE 71; RESP 18; TEMP 37; O2SAT 98
--- NOTE | 2019-12-06 12:27 | ECG_ITS ---
Measurements Intervals [place] Rate: 92 P: 27 PA: 218 QRS: -15 QRSD: 113 T: 52 QT: 371 QTc: 459 Interpretive Statements SINUS RHYTHM WITH FIRST DEGREE AV BLOCK CANNOT RULE OUT SEPTAL INFARCT, AGE INDETERMINATE BASELINE ARTIFACT- V2 ABNORMAL ECG Electronically Signed On 12-06-2019 13:42:33 CDT by Kimo Puckett D.O.
--- NOTE | 2019-12-06 12:35 | ED.DIZZY ---
HPI - Dizziness General Chief Complaint: Dizziness Stated Complaint: NEAR SYNCOPE/DIZZINESS Source: patient Mode of arrival: EMS Limitations: no limitations History of Present Illness HPI Narrative: This patient is a 54 year old male with history of cerebellar ataxic and orthostatic hypotension who presents for evaluation dizziness. He states today he was trying to stand up using his walker but his legs let out from under him and he almost fell. He states his home health nurse was able to catch him and put him in his wheelchair. He states he was having dizziness at the time. He has been evaluated for this symptom in the past and he was hospitalized in October 2019. He was started on Midrodine , and he states he has not taken any today. He is unsure why he has not taken this medication. He denies any additional symptoms. Related Data Home Medications Medication Instructions Recorded Confirmed insulin glargine 100 unit/mL 14 unit SUB-Q DAILY 03/28/19 12/06/19 subcutaneous solution lamotrigine 100 mg tablet 200 mg PO BID 03/28/19 12/06/19 quetiapine 100 mg tablet 600 mg PO HS tablet 03/28/19 12/06/19 calcium carbonate [Victor Hugo-Gest 500 mg PO DAILY 10/19/19 12/06/19 Antacid] escitalopram oxalate [Lexapro] 10 mg PO DAILY 10/19/19 12/06/19 insulin aspart U-100 [Novolog 7 unit SUBCUT TID 10/19/19 12/06/19 U-100 Insulin aspart] rosuvastatin [Crestor] 20 mg PO HS 10/19/19 12/06/19 midodrine 5 mg PO PRN PRN 12/06/19 12/06/19 Allergies Allergy/AdvReac Type Severity Reaction Status Date / Time Penicillins Allergy Unknown unknown Verified 12/06/19 12:20 Review of Systems Review of Systems: All systems reviewed & are unremarkable except as noted in HPI and below Constitutional: Constitutional: Denies chills and Denies fever(s) ENT: Reports dizziness and Denies nasal congestion Cardiovascular: Cardiovascular: Denies chest pain Respiratory: Respiratory: Denies cough and Denies dyspnea Gastrointestinal: Gastrointestinal: Denies abdominal pain, Denies bloating, Denies nausea and Denies vomiting Neurologic: Denies focal weakness and Reports weakness PMFSH Past Medical History Medical History (Updated 12/06/19 @ 20:29 by Marya Amin NP) ATN (acute tubular necrosis) Bipolar II disorder Cerebellar ataxia Chronic kidney disease, stage II (mild) Orthostatic hypotension Other hyperlipidemia Peripheral autonomic neuropathy Type 2 diabetes mellitus with diabetic neuropathy Vertigo, constant Surgical History Surgical History History of hip surgery right hip History of tonsillectomy Family History Family History Father Malignant neoplasm of prostate Cancer of kidney Mother Family history of diabetes mellitus in first degree relative Asthma Social History Social History Social History: the patient lives with his . He has 3 children and his son is the poa and the patient stated that he just redid the living will and that his child will bring it. He is a full code. He is retired from [employer]. He occasionally has a beer. No tobacco abuse. No illicit drugs. Smoking status: Never smoker Second hand tobacco smoke exposure: No Alcohol intake: never Substance use: never Substance use type: does not use Gender identity (if verbalized by the patient): Male Sexual Orientation (if Verbalized by the Patient): Straight or Heterosexual Spiritual care concerns: No Exam Const: General: alert and ill appearing chronically Orientation/consciousness: patient oriented x3 HENMT: Head: normocephalic and atraumatic Ears: external ears normal and TM's normal bilaterally Face and sinus: face symmetric Mouth: Yes Normal oral and palatal mucosa present, Yes lip normal and Yes oropharynx normal Throat: posterior oropharynx normal
[2019-12-06] MEDS: MECLIZINE HCL 12.5 MG TABLET PO (12:53)
[2019-12-06] MEDS: MIDODRINE HCL 2.5 MG TABLET 5 MG PO (13:46)
[2019-12-06 13:49] VITALS: BP 118/74; BP 163/92; BP 99/61; PULSE 108; PULSE 93; PULSE 97
[2019-12-06 14:09] LABS: Basophils Percent Auto 0.6 % (0.2-1.2); Eosinophils Absolute Auto 0.2 K/mm3 (0-0.3); Eosinophils Percent Auto 2.2 % (0-4.4); Hematocrit 30.6 % (42.0-52.0); Hemoglobin 10.1 g/dL (14.0-18.0); Immature Granulocyte Absolute 0.01 K/mm3 (0.00-0.031); Immature Granulocyte Percent A 0.1 % (0-0.5); Lymphocytes Absolute Auto 1.52 K/mm3 (0.9-3.2); Lymphocytes Percent Auto 21.8 % (18.3-44.2); Mean Corpuscular Hemoglobin 30.5 pg (26-34); Mean Corpuscular Volume 92.4 fl (80-100); Mean Platelet Volume 9.9 fl (7.4-10.4); Monocytes Absolute Auto 0.7 K/mm3 (0.1-0.6); Monocytes Percent Auto 9.6 % (2.6-8.5); Neutrophils Absolute Auto 4.6 K/mm3 (1.3-6.7); Neutrophils Percent Auto 65.7 % (45.5-73.1); Platelet Count Result 216 k/mm3 (150-375); Red Blood Count 3.31 M/mm3 (4.6-6.20); Red Cell Distribution Width 12.4 % (11.5-14.5)
[2019-12-06 14:20] LABS: Alanine Aminotransferase 18 U/L (4-50); Alkaline Phosphatase 87 U/L (38-126); Anion Gap 10 mmol/L (8-16); Aspartate Amino Transferase 33 U/L (17-59); Bilirubin,Total 0.1 mg/dL (0.2-1.3); Blood Urea Nitrogen 28 mg/dL (9-20); Calcium 9.3 mg/dL (8.4-10.2); Carbon Dioxide 27 mmol/L (22-30); Chloride 103 mmol/L (98-107); Estimated CRCL calculation 24 ml/min; Estimated Glomerular Filt Rate 20; Glucose 173 mg/dL (75-110); Potassium 4.1 mmol/L (3.4-5.0); Sodium 140 mmol/L (137-145)
[2019-12-06 14:38] VITALS: BP 157/101; PULSE 91; RESP 15; O2SAT 94
--- NOTE | 2019-12-06 14:58 | PC.NURSE ---
Per Dr. Ornelas, walked pt in [place] with gatebelt and walker. PT was able to walk a few steps but then stated that he felt dizzy again and wanted to get back in bed. As walking pt back to bed pt started to get weak and shaking. Pt placed in bed and Dr. Ornelas notified.
[2019-12-06] MEDS: SODIUM CHLORIDE 0.9% IV 500 ML 999 ML IV CONT (15:52)
[2019-12-06 16:01] LABS: Add Urine Microscopic? YES; Appearance Urine Cloudy (Clear); Bacteria Urine Trace /hpf; Bilirubin Urine Negative (Negative); Blood Urine 1+ (Negative); Color Urine Yellow (Yellow); Glucose Urine UA 1+ mg/dL (Negative); Ketones Urine Negative (Negative); Leukocyte Esterase Ur 3+ LEU/UL (Negative); Mucus Urine Rare /lpf; Nitrate Urine Negative (Negative); Protein Urine 2+ mg/dL (Negative); Specific Grav Ur 1.012 (1.001-1.035); Urobilinogen Urine Negative mg/dL (<2.0); WBC Clumps Urine Present /HPF; WBC Urine >75 /hpf
--- NOTE | 2019-12-06 16:15 | PM.CNCAR ---
Assessment and Plan Assessment and plan (1) CKD (chronic kidney disease): Code(s): N18.9 - Chronic kidney disease, unspecified Status: Acute (2) Other hyperlipidemia: Code(s): E78.49 - Other hyperlipidemia Status: Chronic (3) Orthostatic hypotension: Code(s): I95.1 - Orthostatic hypotension Status: Acute Assessment and Plan: This is likely related to Diabetic autonomic dysfunction. Consider neurology consult. Obtain echo. Advise to keep well hydrated, wear thigh high compression stockings during the day and to take Midodrine as needed when he knows he will be upright. Advise to avoid taking it a few hours prior to bedtime as it will cause supine hypertension. (4) Peripheral autonomic neuropathy: Code(s): G90.9 - Disorder of the autonomic nervous system, unspecified Status: Acute History of Present Illness History of Present Illness Consult date/time: 12/06/19 16:15 Reason for consult: Syncope. 74 yr old man who is my regular cardiology patient who I saw 2 weeks ago for the first time. He has a history of chronic dizziness related to upright position, DM, dyslipidemia, CKD stage II-V. Presents to ED after having an episode of dizziness and then passing out today. He was with his caregiver and a physical therapist today, he stood up and was about to walk with his walker when he got dizzy, eyes rolled back, and they had his chair there to catch him. No injury from this episode. He did not take his Midodrine today prior to this episode. Presents with his daughter. Reports that for last 1.5 years he has had orthostatic hypotension. He is on Midodrine but he still gets dizzy and so 2 weeks ago I increased Midodrine to 5 mg TID to be used when expecting to be upright. He can walk with his walker about 100 yards. He drinks plenty of water and wears compression stockings. Denies chest pain, sob, orthopnea, PND, edema, palpitations. Home records shows orthostasis with BP dropping from lying to sitting then to standing significantly to 70-80 systolic. Cardiovascular Procedures Electrophysiology:: 10/19/19 EKG: Sinus rhythm with first degee AV block, delayed precordial R/S transition. Reason For Visit: NEAR SYNCOPE/DIZZINESS Review of Systems Review of Systems: All systems reviewed & are unremarkable except as noted in HPI and below Constitutional: Constitutional: Reports as per HPI Cardiovascular: Cardiovascular: Reports as per HPI, Denies chest pain, Denies leg edema and Reports lightheadedness Respiratory: Respiratory: Reports as per HPI and Denies dyspnea Gastrointestinal: Gastrointestinal: Reports as per HPI and Denies abdominal pain Genitourinary: Genitourinary: Reports as per HPI and Denies dysuria Musculoskeletal: Musculoskeletal: Reports as per HPI Neurologic: Reports as per HPI, Denies Abnormal speech present and Denies confusion [facility] Past Medical History Medical History Bipolar II disorder Cerebellar ataxia Chronic kidney disease, stage II (mild) Orthostatic hypotension Other hyperlipidemia Peripheral autonomic neuropathy Type 2 diabetes mellitus with diabetic neuropathy Vertigo, constant Surgical History Surgical History History of hip surgery right hip History of tonsillectomy Social History Social History Social History: the patient lives with his . He has 3 children and his son is the poa and the patient stated that he just redid the living will and that his child will bring it. He is a full code. He is retired from [employer]. He occasionally has a beer. No tobacco abuse. No illicit drugs. Smoking status: Never smoker Second hand tobacco smoke exposure: No Alcohol intake: never Substance use: never Substance use type: does not use Gender identity (if verbalized by the rosalino
[2019-12-06 16:48] VITALS: BP 174/98; PULSE 92; RESP 21; O2SAT 99
--- NOTE | 2019-12-06 17:15 | PC.NURSE ---
This patient, Juanjo Urbano, was admitted to Medical Room 244-. Patient/family oriented to hospital policies and general routines including ID bracelet, bed and alarms, visiting hours, pain management, procedures, bathroom and other care routines, personal items, smoking policy, room service/diet, and visiting hours. Valuables list has been completed. Information on how to activate the Rapid Response Team has been discussed. Patient/Family are encouraged to report perceived risks to care and to ask questions if they do not understand what they are told or what they should do.
[2019-12-06] MEDS: SODIUM CHLORIDE 0.9% IV 1,000 ML 75 ML IV CONT (18:48)
[2019-12-06 19:02] LABS: Glucose Point of Care 152 (65-105)
[2019-12-06 20:00] VITALS: PULSE 92
--- NOTE | 2019-12-06 20:24 | PM.IMHP ---
H&P: HPI History of Present Illness Date/Time: 12/06/19 20:24 Chief complaint: dizziness,orthostatic hypotension Narrative: Juanjo Urbano is a 74 year old male who has a history of cerebellar ataxia and orthostatic hypotension and came to the emergency room for evaluation of dizziness. The patient was just admitted here back in October and discharged October 22, 2019 patient had diarrhea at that time was felt to be dehydrated was given IV fluids and started on midodrine. The patient stated that he had already been on midodrine but it was doubled at that time. He was told not to take the midodrine at night. The patient was discharged back home with home health and physical therapy. The patient started to stand up today but his legs felt weak in they came out from underneath of a meal most fell on the home health nurses and PT caught him in for him in his wheelchair. The patient stated that he was dizzy at that time. He did not take his midodrine today. Is not known if the patient passed out. Cardiology has seen the patient the patient has chronic renal failure and his seen by Dr. Frausto for his ATN. Patient's creatinine is 3.1 which he states is better than what it normally is. H&H is 10.1 and 30.6. Patient is being admitted to observation to medical floor date of service 12/06/2019 Review of Systems Review of Systems: All systems reviewed & are unremarkable except as noted in HPI and below Constitutional: Constitutional: Reports as per HPI and Reports no additional constitutional complaints Eyes: Eyes: Reports as per HPI and Reports no additional eye complaints ENT: Reports system reviewed and no additional complaints, except as documented and Reports Normal hearing present Cardiovascular: Cardiovascular: Reports no additional cardiovascular complaints Respiratory: Respiratory: Reports no additional respiratory complaints and Reports no additional respiratory complaints Gastrointestinal: Gastrointestinal: Reports as per HPI and Reports no additional gastrointestinal complaints Musculoskeletal: Musculoskeletal: Reports no additional musculoskeletal complaints Integumentary/Breasts: Skin/Breast: Reports system reviewed and no additional complaints, except as docu and Reports as per HPI Neurologic: Reports system reviewed and no additional complaints, except as documented, Reports as per HPI and Reports Normal hearing present Psychiatric: Psychiatric: Reports no additional psychiatric complaints and Reports as per HPI Endocrine: Endocrine: Reports no additional endocrine complaints Hematologic/Lymphatic: Hematologic/Lymphatic: Reports no additional hematologic/lymphatic complaints Allergic/Immunologic: Allergic/Immunologic: Reports no additional allergic/immunologic complaints PMFSH Past Medical History Medical History (Updated 12/06/19 @ 20:29 by Marya Amin NP) ATN (acute tubular necrosis) Bipolar II disorder Cerebellar ataxia Chronic kidney disease, stage II (mild) Orthostatic hypotension Other hyperlipidemia Peripheral autonomic neuropathy Type 2 diabetes mellitus with diabetic neuropathy Vertigo, constant Surgical History Surgical History History of hip surgery right hip History of tonsillectomy Family History Family History Father Malignant neoplasm of prostate Cancer of kidney Mother Family history of diabetes mellitus in first degree relative Asthma Social History Social History Social History: the patient lives with his . He has 3 children and his son is the poa and the patient stated that he just redid the living will and that his child will bring it. He is a full code. He is retired from [employer]. He occasionally has a beer. No tobacco abuse. No illicit drugs. Smoking status: Never smoker Second hand tobacco smoke
[2019-12-06] MEDS: ROSUVASTATIN 10 MG TABLET 20 MG PO (21:53)
[2019-12-06] MEDS: QUEtiapine FUMARATE 100 MG TABLET 600 MG PO (21:54)
[2019-12-06] MEDS: lamoTRIgine 100 MG TABLET 200 MG PO (21:54)
[2019-12-06 22:00] VITALS: BP 172/97; PULSE 90; RESP 20; TEMP 36.7; O2SAT 98
[2019-12-07] VITALS (13 sets, daily range): BP systolic 112–186; BP diastolic 60–102; PULSE 78–91; RESP 16–20; TEMP 36.3–36.7; O2SAT 97–100
--- NOTE | 2019-12-07 | ECHO_ITS ---
Patient Info Name: Juanjo Urbano Age: 74 years : 1945 Gender: Male Ht: 71 in Wt: 240 lbs BSA: 2.37 m2 HR: 86 bpm BP: 130 / 65 mmHg Technical Quality: Good Exam Date: 12/07/2019 10:30 AM Exam Location: [facility] Patient Status: Inpatient Admit Date: 12/06/2019 Staff Ordering Physician: Kimo Puckett DO Software Engineer Sales: Xavier Davis RDCS, RT Attending Provider: Joshua Valverde MD Referring Physician: Italo HUFF; Exam Type: CA echo dop color flow w con Study Info Indications R55 - Syncope and collapse Complete two-dimensional, color flow and Doppler transthoracic echocardiogram is performed with contrast to opacify the left ventricle and to improve the deliniation of the left ventricle endocardial borders. Summary 1. Left ventricular chamber dimension is normal. 2. Definity contrast administered improved wall motion interpretation. 3. Left ventricular systolic function is normal, estimated at 60-65%. 4. There is moderately increased left ventricular wall thickness. 5. The left ventricular diastolic function is grade I diastolic dysfunction. 6. E/e' 10 is mildly elevated. 7. There is trace mitral valve regurgitation. 8. There is trace pulmonic regurgitation. Left Ventricle E/e' 10 is mildly elevated. Definity contrast administered improved wall motion interpretation. Left ventricular chamber dimension is normal. Left ventricular systolic function is normal, estimated at 60-65%. There is moderately increased left ventricular wall thickness. The left ventricular diastolic function is grade I diastolic dysfunction. Right Ventricle Right ventricular chamber dimension is normal. Right ventricular systolic function is normal. Left Atria Left atrial chamber dimension is normal. Right Atria Right atrial chamber dimension is normal. Aortic Valve The aortic valve is trileaflet. There is no aortic valve stenosis. There is no aortic valve regurgitation. Pulmonic Valve There is trace pulmonic regurgitation. Mitral Valve There is no mitral valve stenosis. There is trace mitral valve regurgitation. Tricuspid Valve There is no tricuspid valve regurgitation. Pericardium/Pleural There is no pericardial effusion. Inferior Vena Cava Normal inferior vena cava with >50% collapse upon inspiration consistent with normal right atrial pressure, 5 mmHg. Aorta The aortic root size at the sinus of Valsalva is normal. Left Ventricular Outflow Tract Name Value Normal LVOT 2D LVOT Diameter 2.14 cm LVOT Doppler LVOT Peak Gradient 3 mmHg LVOT Mean Gradient 1 mmHg LVOT VTI 15.69 cm LVOT VTI/AV VTI Ratio 0.69 LVOT Stroke Volume 56.35 ml LVOT CO 4.99 l/min LVOT CI 2.11 L/min/m2 Mitral Valve Name Value Normal
[2019-12-07 05:46] LABS: Basophils Percent Auto 0.7 % (0.2-1.2); Eosinophils Absolute Auto 0.2 K/mm3 (0-0.3); Eosinophils Percent Auto 3.4 % (0-4.4); Hematocrit 28.9 % (42.0-52.0); Hemoglobin 9.4 g/dL (14.0-18.0); Immature Granulocyte Absolute 0.01 K/mm3 (0.00-0.031); Immature Granulocyte Percent A 0.2 % (0-0.5); Lymphocytes Absolute Auto 2.16 K/mm3 (0.9-3.2); Lymphocytes Percent Auto 35.4 % (18.3-44.2); Mean Corpuscular HGB Conc 32.5 g/dl (32-36); Mean Corpuscular Volume 92.3 fl (80-100); Mean Platelet Volume 9.6 fl (7.4-10.4); Monocytes Absolute Auto 0.7 K/mm3 (0.1-0.6); Monocytes Percent Auto 11.1 % (2.6-8.5); Neutrophils Percent Auto 49.2 % (45.5-73.1); Platelet Count Result 205 k/mm3 (150-375); Red Blood Count 3.13 M/mm3 (4.6-6.20); Red Cell Distribution Width 12.5 % (11.5-14.5); White Blood Count 6.1 K/mm3 (4.5-10.0)
[2019-12-07 06:02] LABS: Glucose Point of Care 175 (65-105)
[2019-12-07 06:51] LABS: Cortisol Random 5.25 ug/dL
[2019-12-07 07:01] LABS: Alanine Aminotransferase 15 U/L (4-50); Albumin Level 3.6 g/dL (3.5-5.1); Alkaline Phosphatase 79 U/L (38-126); Anion Gap 8 mmol/L (8-16); Aspartate Amino Transferase 30 U/L (17-59); Bilirubin,Total 0.2 mg/dL (0.2-1.3); Blood Urea Nitrogen 26 mg/dL (9-20); Calcium 8.9 mg/dL (8.4-10.2); Carbon Dioxide 25 mmol/L (22-30); Chloride 108 mmol/L (98-107); Estimated CRCL calculation 25 ml/min; Estimated Glomerular Filt Rate 20; Glucose 140 mg/dL (75-110); Magnesium 2.2 mg/dL (1.6-2.3); Sodium 141 mmol/L (137-145)
[2019-12-07 07:48] LABS: Glucose Point of Care 125 (65-105)
[2019-12-07] MEDS: SODIUM CHLORIDE 0.9% IV 1,000 ML 75 ML IV CONT ×2 (08:35→23:27)
[2019-12-07] MEDS: ESCITALOPRAM OXALATE 10 MG TABLET PO (08:36)
[2019-12-07] MEDS: lamoTRIgine 100 MG TABLET 200 MG PO ×2 (08:36→20:34)
[2019-12-07] MEDS: SODIUM BICARBONATE TAB 650 MG TABLET BY MOUTH (08:37)
[2019-12-07] MEDS: INSULIN ASPART (*BKC) 100 UNITS/ML 7 UNITS SUB-Q ×3 (08:37→17:37)
[2019-12-07] MEDS: INSULIN GLARGINE (*BKC) 100 UNITS/ML 14 UNITS SUB-Q (08:37)
[2019-12-07] MEDS: CALCIUM CARBONATE (TUMS) 500 MG (200 MG ELEMENTAL) PO (08:40)
[2019-12-07] MEDS: MIDODRINE HCL 2.5 MG TABLET 5 MG PO ×2 (10:00→17:37)
--- NOTE | 2019-12-07 10:28 | PM.PNCARD ---
Progress Note: A&P Assessment and Plan (1) CKD (chronic kidney disease): Code(s): N18.9 - Chronic kidney disease, unspecified Status: Acute (2) Other hyperlipidemia: Code(s): E78.49 - Other hyperlipidemia Status: Chronic (3) Orthostatic hypotension: Code(s): I95.1 - Orthostatic hypotension Status: Chronic Assessment and Plan: This is likely related to Diabetic autonomic dysfunction. Consider neurology consult. Obtain echo. Advise to keep well hydrated, wear thigh high compression stockings during the day and to take Midodrine as needed when he knows he will be upright. Advise to avoid taking it a few hours prior to bedtime as it will cause supine hypertension. Subjective Date/time seen: 12/07/19 10:28 Reports no dizziness yet as he has not gotten up yet this morning. Denies chest pain or sob. Exam Const: General: comfortable and no acute distress Neck: Neck: no JVD Carotids: no bruits Resp: Auscultation: clear to auscultation bilaterally, no crackles, no rales, no rhonchi and no wheezes Cardio: Rate: regular rate Rhythm: regular rhythm Heart sounds: no murmurs GI: Inspection: non-distended Neuro: Speech: normal speech Extrem: Right lower extremity: no edema Left lower extremity: no edema Objective Data Vital Signs Vital Signs: Vital Signs - 24 hr 12/06/19 12:14 12/06/19 13:49 12/06/19 14:38 Temperature 98.6 F Pulse Rate 71 108 H 91 Respiratory Rate 18 15 Blood Pressure 157/65 H 99/61 L 157/101 H Pulse Oximetry 98 94 12/06/19 16:48 12/06/19 20:00 12/06/19 22:00 Temperature 98.1 F Pulse Rate 92 92 90 Respiratory Rate 21 H 20 Blood Pressure 174/98 H 172/97 H Pulse Oximetry 99 98 12/07/19 00:00 12/07/19 04:00 12/07/19 06:00 Temperature 97.4 F L Pulse Rate 90 79 82 Respiratory Rate 20 Blood Pressure 130/65 Pulse Oximetry 97 12/07/19 08:45 12/07/19 08:47 12/07/19 08:52 Temperature Pulse Rate Respiratory Rate Blood Pressure 143/102 H 135/65 120/63 Pulse Oximetry Intake/Output Intake/Output: Intake & Output 12/04/19 12/05/19 12/06/19 12/07/19 23:59 23:59 23:59 23:59 Intake Total 500 1530 Output Total 1700 Balance 500 -170 Meds/Results Medications: Active Medications Generic Name Dose Route Start Last Admin Trade Name Freq PRN Reason Stop Dose Admin Calcium Carbonate 200 mg 12/07/19 09:00 12/07/19 08:40 Tums PO 200 mg DAILY CAESAR Administration Dextrose 12.5 gm 12/06/19 20:31 Dextrose 50% Syringe IV PUSH PRN PRN Hypoglycemia Protocol Escitalopram Oxalate 10 mg 12/07/19 09:00 12/07/19 08:36 Lexapro PO 10 mg DAILY CAESAR Administration Glucagon 1 mg 12/06/19 20:31 Glucagon For Inj IM PRN PRN Hypoglycemia Protocol Glucose 15 gm 12/06/19 20:31 Glutose 15 PO PRN PRN Hypoglycemia Protocol Acetaminophen 1,000 mg in 100 mls @ 400 mls/hr 12/06/19 15:32 Ofirmev 1,000 Mg Ivpb IVPB 12/07/19 15:33 Q6H PRN Mild Pain (1-3) or Fever Sodium Chloride 1,000 mls @ 75 mls/hr 12/06/19 15:35 12/07/19 08:35 Normal Saline Iv IV CONT 75 mls/hr .[id number] CAESAR Administration Dextrose 1,000 mls @ 100 mls/hr 12/06/19 20:31 Dextrose 5% 1,000 Ml IVPB PRN PRN Hypoglycemia Protocol Insulin Aspart 7 units 12/07/19 08:00 12/07/19 08:37 Novolog SUB-Q 7 units TIDWM CAESAR Administration Insulin Aspart 2 - 5 units 12/07/19 08:00 12/07/19 08:41 Novolog SUB-Q Not Given TIDWM CAESAR Protocol Insulin Glargine 14 units 12/07/19 09:00 12/07/19 08:37 Lantus SUB-Q 14 units DAILY CAESAR Administration Lamotrigine 200 mg 12/06/19 21:00 12/07/19 08:36 Lamictal PO 200 mg Q12HR CAESAR Administration Midodrine 5 mg 12/06/19 20:19 10/01/20 10:00 Proamatine PO 5 mg PRN PRN Administration dizziness Ondansetron HCl 4 mg 12/06/19 15:32 Zofran
--- NOTE | 2019-12-07 10:52 | PCOTNOTE ---
Attempted OT eval at 10:00; obtained prior levels but pt given midodrine and had to lie down for 30 minutes. Re-attempted at 10:30 but pt was getting echo completed. OT to re-attempt eval later today.
[2019-12-07] MEDS: PERFLUTREN LIPID MICROSPHERES 1.5 ML VIAL DILUTED TO 10 ML TOTAL VOLUME IV PUSH (10:56)
[2019-12-07 11:49] LABS: Glucose Point of Care 125 (65-105)
--- NOTE | 2019-12-07 16:04 | PM.IMPN ---
Progress Note: A&P Assessment and Plan (1) Orthostatic hypotension: Code(s): I95.1 - Orthostatic hypotension Status: Chronic Assessment and Plan: CT brain showing no acute findings. Midodrine was made prn and he has had only one dose since admission. Symptoms are better just with IV fluids despite being off his midodrine. The patient recently was started on Flomax and Proscar about a week ago. Will continue to hold these medications. Echo showing EF 60% with diastolic dysfunction. Monitor fluid status closely. Add Yuri hose. Schedule midodrine. Hold Flomax and Proscar. Treat possible UTI. Orthostatic VS Qshift. Check TCK given that he is on Crestor. funmilayo had not taken his Midodrine on the day of admission and suspect that played apart as well. (2) Vertigo, constant: Code(s): R42 - Dizziness and giddiness Status: Acute Assessment and Plan: Patient denies to me that he has room spinning sensation. He was given meclizine in ER. No further symptoms of this. Follow for now. (3) Type 2 diabetes mellitus with diabetic neuropathy: Code(s): E11.40 - Type 2 diabetes mellitus with diabetic neuropathy, unspecified Status: Acute Assessment and Plan: A1c 5.3 about a month ago. The patient's blood glucose was reviewed on 12/06 Glucose remains well controlled. Continue AccuCheks covering with sliding scale. Hypoglycemia protocol available as needed. Continue current medications. (4) Bipolar II disorder: Code(s): F31.81 - Bipolar II disorder Status: Chronic Assessment and Plan: Stable. Continue Lamictal, Lexapro and Seroquel. (5) Anemia: Code(s): D64.9 - Anemia, unspecified Status: Chronic Assessment and Plan: Most likely secondary to his chronic renal failure. Hgb low but similar to levels noted last admission. Continue to monitor. (6) CKD (chronic kidney disease): Code(s): N18.9 - Chronic kidney disease, unspecified Status: Acute Assessment and Plan: Patient's creatinine 4.3 last admission but dropped 3.2 at discharge last month. Cr here 3.3 and better today at 3.0. There was some discussion about dialysis at 1 point. Continue to follow. (7) DVT prophylaxis: Code(s): Z29.9 - Encounter for prophylactic measures, unspecified Status: Acute Assessment and Plan: Heparin Subjective Date/time seen: 12/07/19 16:04 Interval history: Date of service: 12/06 74yo male with cerebellar ataxia and orthostatic HoTN here for dizziness descried as lightheadedness. Patient is having slight dizziness with walking today. Symptoms are much better overall. He takes Midorine scheduled 5 mg 3 times a day. He has noted symptoms have worsened over the past month which prompted an increase in his midodrine from 2.5 to 5 mg about 2-3 weeks ago. He has not really noticed a change in his symptoms since that time. He has been drinking plenty of water. Family in the room state patient has had similar events requiring hospitalization with symptoms that improve after IV fluids. He denies any chest pain, shortness of breath, nausea, vomiting, dysuria, hematuria. Exam Narrative: Exam Narrative: AF 98.1 159/97 85 20 100% ra Gen - NARD sitting up in a chair Chest - CTA bilaterally, nml RR CV - RRR S1/S2. telemetry showing no significant dysrhythmias Abd - Soft, NT/ND, Positive BS Ext - No pedal edema Neuro - Alert and oriented. pleasant and cooperative Psych - Nml mood and affect. Skin - Warm and dry Objective Data Vital Signs Vital Signs: Vital Signs - 24 hr 12/06/19 16:48 12/06/19 20:00 12/06/19 22:00 Temperature 98.1 F Pulse Rate 92 92 90 Respiratory Rate 21 H 20 Blood Pressure 174/98 H 172/97 H Pulse Oximetry 99 98 12/07/19 00:00 12/07/19 04:00 12/07/19 06:00 Temperature 97.4 F L Pulse Rate 90 79 82 Respiratory Rate 20 Blood Pressure 130/65 Pulse O
[2019-12-07 16:18] LABS: Glucose Point of Care 142 (65-105)
--- NOTE | 2019-12-07 18:49 | PC.NURSE ---
Patient son contacted about new medications that the patient recently started, Tamsulosin and Finesteride since 11/27/2019. Added medications to the patients home med list, per Dr. Valverde hold medications at this time.
[2019-12-07] MEDS: HEPARIN SODIUM 5,000 UNITS/ML VIAL 5000 UNITS SUB-Q (20:35)
[2019-12-07] MEDS: QUEtiapine FUMARATE 100 MG TABLET 600 MG PO (20:35)
[2019-12-07] MEDS: ROSUVASTATIN 10 MG TABLET 20 MG PO (20:36)
[2019-12-07 21:18] LABS: Glucose Point of Care 89 (65-105)
[2019-12-08] VITALS: PULSE 77
[2019-12-08 04:00] VITALS: PULSE 77
[2019-12-08 05:40] VITALS: BP 167/82; PULSE 101; RESP 16; TEMP 36.3; O2SAT 99
[2019-12-08 06:07] LABS: Hematocrit 29.3 % (42.0-52.0); Hemoglobin 9.7 g/dL (14.0-18.0); Mean Corpuscular HGB Conc 33.1 g/dl (32-36); Mean Corpuscular Hemoglobin 30.5 pg (26-34); Mean Corpuscular Volume 92.1 fl (80-100); Mean Platelet Volume 9.9 fl (7.4-10.4); Platelet Count Result 207 k/mm3 (150-375); Red Blood Count 3.18 M/mm3 (4.6-6.20); Red Cell Distribution Width 12.2 % (11.5-14.5); White Blood Count 5.8 K/mm3 (4.5-10.0)
[2019-12-08 06:13] LABS: Albumin Level 3.6 g/dL (3.5-5.1); Anion Gap 8 mmol/L (8-16); Blood Urea Nitrogen 23 mg/dL (9-20); Carbon Dioxide 26 mmol/L (22-30); Chloride 106 mmol/L (98-107); Creatine Kinase 108 U/L (55-170); Estimated CRCL calculation 27 ml/min; Estimated Glomerular Filt Rate 22; Glucose 140 mg/dL (75-110); Phosphorus 3.5 mg/dL (2.5-4.5); Potassium 4.2 mmol/L (3.4-5.0); Sodium 140 mmol/L (137-145)
[2019-12-08 07:43] LABS: Glucose Point of Care 129 (65-105)
--- NOTE | 2019-12-08 07:49 | PM.PNCARD ---
Progress Note: A&P Assessment and Plan (1) CKD (chronic kidney disease): Code(s): N18.9 - Chronic kidney disease, unspecified Status: Acute (2) Other hyperlipidemia: Code(s): E78.49 - Other hyperlipidemia Status: Chronic (3) Orthostatic hypotension: Code(s): I95.1 - Orthostatic hypotension Status: Chronic Assessment and Plan: This is likely related to Diabetic autonomic dysfunction. Echo shows normal EF 60-65%, mild diastolic dysfunction. Advise to keep well hydrated, wear thigh high compression stockings during the day and to take Midodrine as needed when he knows he will be upright. Advise to avoid taking it a few hours prior to bedtime as it will cause supine hypertension. No further cardiac workup. July f/u with me as previously scheduled. Subjective Date/time seen: 12/08/19 07:49 Denies chest pain or sob or dizziness while in bed. Exam Const: General: comfortable and no acute distress Neck: Neck: no JVD Carotids: no bruits Resp: Auscultation: clear to auscultation bilaterally, no crackles, no rales, no rhonchi and no wheezes Cardio: Rate: regular rate Rhythm: regular rhythm Heart sounds: no murmurs GI: Inspection: non-distended Neuro: Speech: normal speech Extrem: Right lower extremity: no edema Left lower extremity: no edema Objective Data Vital Signs Vital Signs: Vital Signs - 24 hr 12/07/19 08:00 12/07/19 08:45 12/07/19 08:47 Temperature Pulse Rate 83 Respiratory Rate Blood Pressure 143/102 H 135/65 Pulse Oximetry 12/07/19 08:52 12/07/19 12:00 12/07/19 14:00 Temperature 98.1 F Pulse Rate 91 85 Respiratory Rate 20 Blood Pressure 120/63 159/97 H Pulse Oximetry 100 12/07/19 16:00 12/07/19 20:00 12/07/19 22:00 Temperature 97.5 F L Pulse Rate 78 82 85 Respiratory Rate 16 Blood Pressure 186/96 H Pulse Oximetry 98 12/07/19 22:16 12/08/19 00:00 12/08/19 04:00 Temperature Pulse Rate 77 77 Respiratory Rate Blood Pressure 112/60 Pulse Oximetry 12/08/19 05:40 Temperature 97.4 F L Pulse Rate 101 H Respiratory Rate 16 Blood Pressure 167/82 H Pulse Oximetry 99 Intake/Output Intake/Output: Intake & Output 12/05/19 12/06/19 12/07/19 12/08/19 23:59 23:59 23:59 23:59 Intake Total 500 4300 653 Output Total 2550 1575 Balance 500 1750 -882 Meds/Results Medications: Active Medications Generic Name Dose Route Start Last Admin Trade Name Freq PRN Reason Stop Dose Admin Calcium Carbonate 200 mg 12/07/19 09:00 12/07/19 08:40 Tums PO 200 mg DAILY CAESAR Administration Dextrose 12.5 gm 12/06/19 20:31 Dextrose 50% Syringe IV PUSH PRN PRN Hypoglycemia Protocol Escitalopram Oxalate 10 mg 12/07/19 09:00 12/07/19 08:36 Lexapro PO 10 mg DAILY CAESAR Administration Glucagon 1 mg 12/06/19 20:31 Glucagon For Inj IM PRN PRN Hypoglycemia Protocol Glucose 15 gm 12/06/19 20:31 Glutose 15 PO PRN PRN Hypoglycemia Protocol Heparin Sodium (Porcine) 5,000 units 12/07/19 21:00 12/07/19 20:35 Heparin Sodium SUB-Q 5,000 units Q12HR CAESAR Administration Dextrose 1,000 mls @ 100 mls/hr 12/06/19 20:31 Dextrose 5% 1,000 Ml IVPB PRN PRN Hypoglycemia Protocol Ceftriaxone Sodium/Dextrose 1 gm in 50 mls @ 100 mls/hr 12/07/19 18:00 12/07/19 18:07 Rocephin 1 Gm/D5w 50 Ml IVPB Infused Q24H CAESAR Infusion Insulin Aspart 7 units 12/07/19 08:00 12/07/19 17:37 Novolog SUB-Q 7 units TIDWM CAESAR Administration Insulin Aspart 2 - 5 units 12/07/19 08:00 12/07/19 17:36 Novolog SUB-Q Not Given TIDWM CAESAR Protocol Insulin Glargine 14 units 12/07/19 09:00 12/07/19 08:37 Lantus SUB-Q 14 units DAILY CAESAR Administration Lamotrigine 200 mg 12/06/19 21:00 12/07/19 20:34 Lamictal PO 200 mg Q12HR CAESAR Administration Midodrine 5 mg 12/07/19 17:00
[2019-12-08 08:00] VITALS: BP 160/79; PULSE 82; PULSE 89
[2019-12-08 08:05] VITALS: BP 110/55; BP 133/68; PULSE 91; PULSE 98
[2019-12-08] MEDS: CALCIUM CARBONATE (TUMS) 500 MG (200 MG ELEMENTAL) PO (08:28)
[2019-12-08] MEDS: ESCITALOPRAM OXALATE 10 MG TABLET PO (08:28)
[2019-12-08] MEDS: MIDODRINE HCL 2.5 MG TABLET 5 MG PO ×2 (08:29→12:54)
[2019-12-08] MEDS: lamoTRIgine 100 MG TABLET 200 MG PO (08:29)
[2019-12-08] MEDS: HEPARIN SODIUM 5,000 UNITS/ML VIAL 5000 UNITS SUB-Q (08:29)
[2019-12-08] MEDS: INSULIN ASPART (*BKC) 100 UNITS/ML 7 UNITS SUB-Q ×2 (08:30→12:54)
[2019-12-08] MEDS: INSULIN GLARGINE (*BKC) 100 UNITS/ML 14 UNITS SUB-Q (08:30)
--- NOTE | 2019-12-08 09:48 | PM.DS ---
DS: Admitting Diagnosis Admitting Diagnosis Admitting Diagnosis: dizziness,orthostatic hypotension DS: Discharge Diagnosis Discharge Diagnosis (1) Orthostatic hypotension: Code(s): I95.1 - Orthostatic hypotension Status: Chronic Assessment and Plan: Patient presented with dizziness and found to have orthostatic HoTN. The patient recently was started on Flomax and Proscar about a week ago. The patient takes Midodrine PRN and had not taken his Midodrine on the day of admission. CT brain showing no acute findings. Midodrine was made prn on admission but this was scheduled. Symptoms improved with IV fluids despite being off his midodrine. Flomax and Proscar were placed on hold. Echo showing EF 60% with diastolic dysfunction. Yuri grider added. Possible UTI but UCx growing Coag Negative staph so felt more likely contaminant. He did receive one dose of Vanco which probably sufficient treatment given his underlying CKD. Orthostatic VS persistent but improved. Total CK level normal. Cardiology involved in his care as well. (2) Vertigo, constant: Code(s): R42 - Dizziness and giddiness Status: Acute Assessment and Plan: Patient denies to me that he has room spinning sensation. He was given meclizine in ER. No further symptoms of this. (3) Type 2 diabetes mellitus with diabetic neuropathy: Code(s): E11.40 - Type 2 diabetes mellitus with diabetic neuropathy, unspecified Status: Acute Assessment and Plan: A1c 5.3 about a month ago. The patient's blood glucose was monitored Glucose remained well controlled. Continue AccuCheks covering with sliding scale. Hypoglycemia protocol available as needed. (4) Bipolar II disorder: Code(s): F31.81 - Bipolar II disorder Status: Chronic Assessment and Plan: Mood stable. We continued Lamictal, Lexapro and Seroquel. (5) Anemia: Code(s): D64.9 - Anemia, unspecified Status: Chronic Assessment and Plan: Most likely secondary to his chronic renal failure. Hgb low but similar to levels noted last admission. (6) CKD (chronic kidney disease): Code(s): N18.9 - Chronic kidney disease, unspecified Status: Acute Assessment and Plan: Patient's creatinine 4.3 last admission but dropped 3.2 at discharge last month. There was some discussion about dialysis at 1 point. Cr here 3.3 and better today at 2.8 so may have had mild dehydration as well to explain some of the above symptoms. DS: Summary Hospital Course Reason for hospitalization: 74yo male with cerebellar ataxia, CKD and orthostatic HoTN here for dizziness. Please see H&P for details. Hospital Course: As above. Time Spent with Patient Time attestation: Total time spent providing and/or coordinating discharge services:34 minutes Time spent: Greater than 30 minutes Exam Narrative: Exam Narrative: No further dizziness. Feels well. Eating normally. Feels ready for discharge. AF 97.4 98 99% ra Supine 160/79, Sitting 133/68, standing 110/55 Gen - NARD Chest - CTA bilaterally, nml RR CV - RRR S1/S2. telemetry showing no significant dysrhythmias Abd - Soft, NT/ND, Positive BS Ext - No pedal edema Neuro - Alert and oriented. pleasant and cooperative Psych - Nml mood and affect. Skin - Warm and dry DS: Data Data Completed and Pending Labs on day of discharge: Labs from last 24 hours 12/08/19 12/08/19 12/08/19 07:37 05:13 05:12 WBC 5.8 RBC 3.18 L Hgb 9.7 L Hct 29.3 L MCV 92.1 MCH 30.5 MCHC 33.1 RDW 12.2 Plt Count 207 MPV 9.9 Sodium 140 Potassium 4.2 Chloride 106 Carbon Dioxide 26 Anion Gap 8 BUN 23 H Creatinine 2.80 H Estim Creat Clear Calc 27 Estimated GFR 22 L Glucose 140 H POC Capillary Glucose 129 H Calcium 9.0 Phosphorus 3.5 Total Creatine Kinase 108 Albumin 3.6 12/07/19 12/07/19 12/07/19
[2019-12-08 12:42] LABS: Glucose Point of Care 129 (65-105)
== END 2019-12-08 13:50 | disposition home health service (06) ==
LOC: ANHED 17:10 → ANH2MED 17:27
PROVIDERS: Nurse Practitioner; Admitting Provider Internal Medicine; Emergency Provider General Practice; PCP Internal Medicine; Visit Provider Internal Medicine
DX: I95.1 Orthostatic hypotension (principal); R42 Dizziness and giddiness; N17.0 Acute kidney failure with tubular necrosis; D63.1 Anemia in chronic kidney disease; E10.42 Type 1 diabetes mellitus with diabetic polyneuropathy; E10.22 Type 1 diabetes mellitus with diabetic chronic kidney disease; E10.43 Type 1 diabetes mellitus with diabetic autonomic (poly)neuropathy; E78.5 Hyperlipidemia, unspecified; F31.81 Bipolar II disorder; G90.9 Disorder of the autonomic nervous system, unspecified; N18.2 Chronic kidney disease, stage 2 (mild); Z23 Encounter for immunization; Z79.4 Long term (current) use of insulin; Z79.899 Other long term (current) drug therapy
CPT/HCPCS: 36415; 70450; 71045; 80053; 80069; 81001; 82533; 82550; 83735; 84100; 85025; 85027; 87077; 87086; 87088; 87186; 90471; 90653; 93005; 96361; 96365; 96366; 96367; 96372; 96374; 96375; 97110; 97116; 97162; 97165; 99285; A9270; C8929; G0008; G0378; J0696; J1644; J1815; J3370; J7030; J7040; Q9957

== ENCOUNTER 2020-03-06 13:09 | Outpatient (CLI) | payer OTHER, SELFPAY ==
[2020-03-06 13:48] LABS: Creatinine Urine 59.3 mg/dL; Total Protein Urine Random 100 mg/dL; Ur Ttl Prot Creatinine Ratio 1.69 mg/mg (0-0.20)
[2020-03-06 13:57] LABS: Anion Gap 9 mmol/L (8-16); Blood Urea Nitrogen 35 mg/dL (9-20); Calcium 9.4 mg/dL (8.4-10.2); Carbon Dioxide 25 mmol/L (22-30); Chloride 104 mmol/L (98-107); Estimated Glomerular Filt Rate 19; Glucose 155 mg/dL (75-110); Potassium 3.8 mmol/L (3.4-5.0); Sodium 138 mmol/L (137-145)
== END 2020-03-06 13:10 | disposition home or self-care (01) ==
LOC: ANHLAB 13:11
PROVIDERS: PCP Internal Medicine; Visit Provider Internal Medicine Nephrology
DX: N17.9 Acute kidney failure, unspecified (principal)
CPT/HCPCS: 36415; 80069; 82570; 84156

== ENCOUNTER 2020-03-28 12:04 | Outpatient (CLI) | payer OTHER, SELFPAY ==
[2020-03-28 12:32] LABS: Cholesterol 123 mg/dL (0-200); HDL Direct 63 mg/dL; Triglycerides 100 mg/dL (<150)
[2020-03-28 12:42] LABS: LDL Cholesterol Direct 32 mg/dL
== END 2020-03-28 12:05 | disposition home or self-care (01) ==
PROVIDERS: Family Provider Internal Medicine; PCP Internal Medicine; Visit Provider Internal Medicine Cardiovascular Disease
DX: E78.49 Other hyperlipidemia (principal)
CPT/HCPCS: 36415; 80061

== ENCOUNTER 2020-05-10 15:08 | Outpatient (CLI) | payer OTHER, MEDICARE, SELFPAY | END 2020-05-10 15:09 | disposition home or self-care (01) | LOC: ANHCOVIDVC 15:08 | PROVIDERS: PCP Internal Medicine | DX: Z23 Encounter for immunization (principal) | CPT/HCPCS: 0001A; 91300 ==

== ENCOUNTER 2020-05-31 15:07 | Outpatient (CLI) | payer OTHER, MEDICARE, SELFPAY | END 2020-05-31 15:08 | disposition home or self-care (01) | LOC: ANHCOVIDVC 15:07 | PROVIDERS: PCP Internal Medicine | DX: Z23 Encounter for immunization (principal) | CPT/HCPCS: 0002A; 91300 ==

== ENCOUNTER 2020-06-17 13:38 | Outpatient (CLI) | payer OTHER, SELFPAY ==
[2020-06-17 14:26] LABS: Hematocrit 35.5 % (42.0-52.0); Hemoglobin 11.7 g/dL (14.0-18.0); Mean Corpuscular Hemoglobin 31.5 pg (26-34); Mean Corpuscular Volume 95.7 fl (80-100); Platelet Count Result 194 k/mm3 (150-375); Red Blood Count 3.71 M/mm3 (4.6-6.20); Red Cell Distribution Width 13.1 % (11.5-14.5); White Blood Count 6.5 K/mm3 (4.5-10.0)
[2020-06-17 15:54] LABS: Albumin Level 4.2 g/dL (3.5-5.1); Anion Gap 6 mmol/L (8-16); Blood Urea Nitrogen 45 mg/dL (9-20); Calcium 8.8 mg/dL (8.4-10.2); Carbon Dioxide 25 mmol/L (22-30); Chloride 108 mmol/L (98-107); Estimated Glomerular Filt Rate 21; Glucose 173 mg/dL (75-110); Potassium 4.3 mmol/L (3.4-5.0); Sodium 139 mmol/L (137-145)
[2020-06-17 16:02] LABS: Total Protein Urine Random 70 mg/dL
[2020-06-17 16:08] LABS: Parathyroid Intact 128.1 pg/mL (7.5-53.5)
[2020-06-17 16:42] LABS: Hepatitis B Surface Anti Res Negative
[2020-06-17 17:03] LABS: Creatinine Urine 59.3 mg/dL; Ur Ttl Prot Creatinine Ratio 1.18 mg/mg (0-0.20)
== END 2020-06-17 13:39 | disposition home or self-care (01) ==
PROVIDERS: PCP Internal Medicine; Referring Provider Internal Medicine; Visit Provider Internal Medicine Nephrology
DX: N18.4 Chronic kidney disease, stage 4 (severe) (principal)
CPT/HCPCS: 36415; 80069; 82570; 83970; 84156; 85027; 86706

== ENCOUNTER 2020-09-25 11:39 | Outpatient (CLI) | payer OTHER, SELFPAY ==
[2020-09-25 12:48] LABS: Basophils Percent Auto 0.3 % (0.2-1.2); Eosinophils Absolute Auto 0.2 K/mm3 (0-0.3); Eosinophils Percent Auto 1.1 % (0-4.4); Hematocrit 36.4 % (42.0-52.0); Hemoglobin 11.7 g/dL (14.0-18.0); Immature Granulocyte Absolute 0.05 K/mm3 (0.00-0.031); Immature Granulocyte Percent A 0.4 % (0-0.5); Lymphocytes Absolute Auto 1.35 K/mm3 (0.9-3.2); Mean Corpuscular HGB Conc 32.1 g/dl (32-36); Mean Corpuscular Hemoglobin 30.2 pg (26-34); Mean Corpuscular Volume 93.8 fl (80-100); Mean Platelet Volume 9.4 fl (7.4-10.4); Monocytes Absolute Auto 1.1 K/mm3 (0.1-0.6); Monocytes Percent Auto 8.3 % (2.6-8.5); Neutrophils Absolute Auto 10.8 K/mm3 (1.3-6.7); Neutrophils Percent Auto 79.9 % (45.5-73.1); Platelet Count Result 254 k/mm3 (150-375); Red Blood Count 3.88 M/mm3 (4.6-6.20); Red Cell Distribution Width 13.3 % (11.5-14.5); White Blood Count 13.6 K/mm3 (4.5-10.0)
[2020-09-25 12:50] LABS: Add Urine Microscopic? YES; Appearance Urine Clear (Clear); Bilirubin Urine Negative (Negative); Blood Urine 3+ (Negative); Color Urine Yellow (Yellow); Glucose Urine UA 3+ mg/dL (Negative); Ketones Urine Negative (Negative); Leukocyte Esterase Ur Negative LEU/UL (NEGATIVE); Nitrate Urine Negative (Negative); Protein Urine 2+ mg/dL (Negative); RBC Urine 0-2 /hpf (0-2); Urobilinogen Urine Negative mg/dL (<2.0); WBC Urine 0-3 /hpf (0-3)
[2020-09-25 12:53] LABS: Creatinine Urine 47.8 mg/dL; Total Protein Urine Random 145 mg/dL; Ur Ttl Prot Creatinine Ratio 3.03 mg/mg (0-0.20)
[2020-09-25 12:56] LABS: Albumin Level 4.1 g/dL (3.5-5.1); Anion Gap 13 mmol/L (8-16); Blood Urea Nitrogen 53 mg/dL (9-20); Calcium 9.4 mg/dL (8.4-10.2); Carbon Dioxide 21 mmol/L (22-30); Chloride 106 mmol/L (98-107); Estimated Glomerular Filt Rate 12; Glucose 227 mg/dL (65-110); Phosphorus 4.7 mg/dL (2.5-4.5); Potassium 3.8 mmol/L (3.4-5.0); Sodium 140 mmol/L (137-145)
[2020-09-25 13:08] LABS: Parathyroid Intact 142.4 pg/mL (7.5-53.5)
[2020-09-25 14:05] LABS: Iron 94 ug/dL (49-181)
[2020-09-25 14:15] LABS: Percent Iron Saturation 35 % (20-50)
[2020-09-25 14:47] LABS: Vitamin D 25 Hydroxy 20.5 ng/mL
== END 2020-09-25 11:40 | disposition home or self-care (01) ==
LOC: ANHLAB 11:43
PROVIDERS: PCP Internal Medicine
DX: N17.9 Acute kidney failure, unspecified (principal); I95.1 Orthostatic hypotension; D63.1 Anemia in chronic kidney disease; N18.9 Chronic kidney disease, unspecified; Z13.89 Encounter for screening for other disorder; E55.9 Vitamin D deficiency, unspecified
CPT/HCPCS: 36415; 80069; 81001; 82306; 82570; 82728; 83540; 83550; 83970; 84156; 85025

== ENCOUNTER 2020-10-07 10:43 | Outpatient (CLI) | payer OTHER, SELFPAY ==
[2020-10-07 11:33] LABS: Add Urine Microscopic? YES; Appearance Urine Clear (Clear); Bacteria Urine Trace /hpf; Bilirubin Urine Negative (Negative); Blood Urine 2+ (Negative); Color Urine Yellow (Yellow); Glucose Urine UA Negative (Negative); Ketones Urine Negative (Negative); Leukocyte Esterase Ur Negative LEU/UL (NEGATIVE); Nitrate Urine Negative (Negative); Protein Urine 1+ mg/dL (Negative); Specific Grav Ur 1.011 (1.001-1.035); Urobilinogen Urine Negative mg/dL (<2.0)
[2020-10-07 11:36] LABS: Albumin Level 3.5 g/dL (3.5-5.1); Anion Gap 11 mmol/L (8-16); Blood Urea Nitrogen 42 mg/dL (9-20); Calcium 8.9 mg/dL (8.4-10.2); Carbon Dioxide 24 mmol/L (22-30); Chloride 105 mmol/L (98-107); Estimated Glomerular Filt Rate 13; Glucose 122 mg/dL (65-110); Phosphorus 4.3 mg/dL (2.5-4.5); Potassium 3.8 mmol/L (3.4-5.0); Sodium 140 mmol/L (137-145)
== END 2020-10-07 10:44 | disposition home or self-care (01) ==
PROVIDERS: PCP Internal Medicine; Visit Provider Internal Medicine Nephrology
DX: N17.9 Acute kidney failure, unspecified (principal); N39.0 Urinary tract infection, site not specified
CPT/HCPCS: 36415; 80069; 81001; 87086; 87088

== ENCOUNTER 2020-10-22 10:51 | Outpatient (CLI) | payer OTHER, SELFPAY ==
--- NOTE | ~2020-10-22 | US_ITS ---
US renal BI 10/22/2020 11:34 Procedure: Realtime transabdominal ultrasound of the kidneys and bladder. Indication: Acute renal insufficiency Comparison: 10/20/2019 Findings: Renal echotexture is normal bilaterally without hydronephrosis, contour deforming mass or r enal calculus. There is a 4.9 cm right renal cyst The right kidney measures 9.1 cm and left kidney me asures 10.4 cm. Bladder within normal limits. Impression: 1: Right renal cyst measuring 4.9 cm. Reviewed, dictated and finalized at location A. Impression: 1: Right renal cyst measuring 4.9 cm.
== END 2020-10-22 10:52 | disposition home or self-care (01) ==
PROVIDERS: PCP Internal Medicine; Visit Provider Internal Medicine Nephrology
DX: N17.9 Acute kidney failure, unspecified (principal); N28.1 Cyst of kidney, acquired
CPT/HCPCS: 76775

== ENCOUNTER 2020-10-23 16:42 | Outpatient (CLI) | payer OTHER, SELFPAY ==
[2020-10-23 17:50] LABS: Albumin Level 4.2 g/dL (3.5-5.1); Anion Gap 8 mmol/L (8-16); Blood Urea Nitrogen 38 mg/dL (9-20); Calcium 8.9 mg/dL (8.4-10.2); Carbon Dioxide 25 mmol/L (22-30); Chloride 109 mmol/L (98-107); Estimated Glomerular Filt Rate 14; Glucose 126 mg/dL (65-110); Phosphorus 4.6 mg/dL (2.5-4.5); Potassium 4.3 mmol/L (3.4-5.0); Sodium 142 mmol/L (137-145)
[2020-10-23 17:58] LABS: Complement C3 113 mg/dL (88-165)
[2020-10-27 06:12] LABS: Kappa\\Lambda Light Chains 2.15 (0.26-1.65); Lambda Light Chain 59.2 mg/L (5.7-26.3)
[2020-10-27 12:34] LABS: Anti Glomerular Basement Memb <1.0 AI (<1.0)
[2020-10-27 22:22] LABS: ANCA Screen Negative (Negative)
[2020-10-28 09:42] LABS: RNP Antibodies <1.0; SS-A <1.0; SS-B <1.0
[2020-10-30 14:31] LABS: Complement Total CH50 >60 U/mL (31-60)
== END 2020-10-23 16:43 | disposition home or self-care (01) ==
PROVIDERS: PCP Internal Medicine; Visit Provider Internal Medicine Nephrology
DX: N18.4 Chronic kidney disease, stage 4 (severe) (principal); R80.1 Persistent proteinuria, unspecified
CPT/HCPCS: 36415; 80069; 82595; 83520; 83883; 86021; 86038; 86160; 86162; 86225; 86235; 86334

== ENCOUNTER 2023-03-05 15:13 | Outpatient (CLI) | payer OTHER, SELFPAY ==
[2023-03-05 18:45] LABS: Basophils Absolute Auto 0.1 K/mm3 (0.0-0.1); Basophils Percent Auto 1.1 % (0.2-1.2); Eosinophils Absolute Auto 0.2 K/mm3 (0-0.3); Eosinophils Percent Auto 3.8 % (0-4.4); Hemoglobin 12.5 g/dL (14.0-18.0); Immature Granulocyte Absolute 0.01 K/mm3 (0.00-0.031); Immature Granulocyte Percent A 0.2 % (0-0.5); Lymphocytes Percent Auto 31.4 % (18.3-44.2); Mean Corpuscular HGB Conc 32.1 g/dl (32-36); Mean Corpuscular Hemoglobin 30.7 pg (26-34); Mean Corpuscular Volume 95.8 fl (80-100); Mean Platelet Volume 9.7 fl (7.4-10.4); Monocytes Absolute Auto 0.7 K/mm3 (0.1-0.6); Monocytes Percent Auto 11.5 % (2.6-8.5); Neutrophils Absolute Auto 3.3 K/mm3 (1.3-6.7); Platelet Count Result 203 k/mm3 (150-375); Red Blood Count 4.07 M/mm3 (4.6-6.20); Red Cell Distribution Width 13.9 % (11.5-14.5); White Blood Count 6.4 K/mm3 (4.5-10.0)
[2023-03-05 18:57] LABS: Alanine Aminotransferase 17 U/L (6-50); Albumin Level 4.2 g/dL (3.5-5.1); Alkaline Phosphatase 105 U/L (38-126); Anion Gap 8 mmol/L (8-16); Aspartate Amino Transferase 46 U/L (17-59); Bilirubin,Total 0.6 mg/dL (0.2-1.3); Blood Urea Nitrogen 30 mg/dL (9-20); Calcium 9.4 mg/dL (8.4-10.2); Carbon Dioxide 25 mmol/L (22-30); Chloride 105 mmol/L (98-107); Cholesterol 131 mg/dL (0-200); Estimated Glomerular Filt Rate 19; Glucose 126 mg/dL (65-110); HDL Direct 62 mg/dL; Potassium 4.4 mmol/L (3.4-5.0); Sodium 138 mmol/L (137-145); Triglycerides 108 mg/dL (<150)
[2023-03-05 19:08] LABS: LDL Cholesterol Direct 44 mg/dL
== END 2023-03-05 15:14 | disposition home or self-care (01) ==
LOC: ANHGOSHLAB 15:14
PROVIDERS: PCP Family Medicine; Visit Provider Family Medicine
DX: E78.49 Other hyperlipidemia (principal); Z13.228 Encounter for screening for other metabolic disorders; R53.83 Other fatigue
CPT/HCPCS: 36415; 80053; 80061; 85025